=== PATIENT | male | born 1945 | race Caucasian/White ===

== ENCOUNTER 2017-03-23 13:44 | Inpatient (IN) | payer MEDICARE, OTHER ==
--- NOTE | 2017-03-23 15:25 | ED ---
Throat Pain/Nasal Congestion - HPI Summary HPI Summary: 72 y/o male with PMH of DM, a fib, elevated chol, HTN, CAD presents with herpes zoster ophthalmicus. patient began having symptoms Monday, was seen by PCP ronda ag 03/21, started on valcylovir 1 gram TID, patient noted eye droop and unable to open R eye, sent to Dr. Augustin- did eye examination, sent patient to ER for IV due to possible [employer]IE MAKER involvement and need to ID evaluation. Patient otherwise feeling well, no complaints. + watering of eye, ambulating well, rash with vesicles over right forehead, nose, denies other rash locations. - History of Current Complaint Chief Complaint: EDEyeProblem Time Seen by Provider: 03/23/17 15:09 Hx Obtained From: Patient, Family/Optical Instrument Inspector - Onset/Duration: Gradual Onset, Lasting Days - started monday Severity: Severe - Allergies/Home Medications Allergies/Adverse Reactions: Allergies Allergy/AdvReac Type Severity Reaction Status Date / Time No Known Allergies Allergy Verified 01/19/16 12:36 Home Medications: Home Medications Ascorbic Acid TAB* [Vitamin C TAB*] 500 mg PO DAILY 03/23/17 [History Confirmed 03/23/17] Digoxin TAB* [Lanoxin TAB*] 0.125 mg PO EVERY OTHER DAY 03/23/17 [History Confirmed 03/23/17] Gabapentin CAP(*) [Neurontin 300 CAP(*)] 300 mg PO TID 03/23/17 [History Confirmed 03/23/17] Levothyroxine TAB* [Synthroid TAB*] 112 mcg PO DAILY 03/23/17 [History Confirmed 03/23/17] Losartan TAB* [Cozaar TAB*] 100 mg PO DAILY 03/23/17 [History Confirmed 03/23/17 ] Metoprolol Tartrate TAB* [Lopressor TAB*] 100 mg PO BID 03/23/17 [History Confirmed 03/23/17] Multivitamins/Minerals TAB* [Thera M Plus TAB*] 1 tab PO DAILY 03/23/17 [ History Confirmed 03/23/17] Pravastatin (NF) [Pravachol (NF)] 40 mg PO BEDTIME 03/23/17 [History Confirmed 03/23/17] Tamsulosin CAP* [Flomax CAP*] 0.4 mg PO DAILY 03/23/17 [History Confirmed ] ValACYclovir (*) [Valtrex 1 GM(*)] 1 gm PO TID 03/23/17 [History Confirmed 03/23] Warfarin TAB(*) [Coumadin TAB(*)] 2.5 mg PO TH 03/23/17 [History Confirmed 03/23] amLODIPine TAB* [Norvasc 5 mg TAB*] 5 mg PO DAILY 03/23/17 [History Confirmed ] metFORMIN* [Glucophage 500 MG TAB *] 500 mg PO TID 03/23/17 [History Confirmed 03/23/17] PMH/Surg Hx/FS Hx/Imm Hx Previously Healthy: No - h/o hrt dx, cad, a fib, dm, htn, elev chol Endocrine/Hematology History: Reports: Hx Diabetes Denies: Hx Systemic Lupus Erythematosus Cardiovascular History: Reports: Hx Hypertension Denies: Hx Congestive Heart Failure History: Denies: Hx Dialysis, Hx Renal Disease Musculoskeletal History: Denies: Hx Rheumatoid Arthritis - Cancer History Hx Chemotherapy: No - Surgical History Surgery Procedure, Year, and Place: rachel LLE and fasciotomy, R wrist nerve and tendon repair, R inguinal hernia repair - Immunization History Immunizations Up to Date: Yes Infectious Disease History: No Infectious Disease History: Denies: Traveled Outside the [place] in Last 30 Days - Social History Alcohol Use: None Substance Use Type: Reports: None Smoking Status (MU): Never Smoked Tobacco Review of Systems Positive: Photophobia - eyes currently dilated due to recent eye examination , Blurred Vision, Diplopia, Drainage, Erythema ENT: Negative Cardiovascular: Negative Respiratory: Negative Gastrointestinal: Negative Genitourinary: Negative Musculoskeletal: Negative Positive: Rash Neurological: Negative Psychological: Normal All Other Systems Reviewed And Are Negative: Yes Physical Exam Triage Information Reviewed: Yes Vital Signs On Initial Exam: Initial Vitals Temp Pulse Resp BP Pulse Ox 96.6 F 100 20 110/74 95 03/23/17 13:53 03/23/17 13:53 03/23/17 13:53 03/23/17 13:53 03/23/17 13:53 Vital Signs Reviewed: Yes Appearance: Positive: Well-Appearing, No Pain Distress, Well-Nourished Skin: Positive: Warm, Skin Color Reflects Adequate Perfusion, Other - vesicluar rash over right forehead, over bridge of nose. R eye edematous, shut- patient unable to open indepenantly. + watery drainage noted. Eye examination deferred as spoke with Dr. Augustin who performed examination with results avaialble. pupils dilated b/l, + reactive to light. EMOI L eye. no slurred speech, mouth movements symmetrical. TM, ear canal clear cerumen noted. ENT: Positive: Hearing grossly normal, TMs normal Neck: Positive: Supple, Nontender, No Lymphadenopathy Respiratory/Lung Sounds: Positive: Clear to Auscultation, Breath Sounds Present Cardiovascular: Positive: Normal, RRR, Pulses are Symmetrical in both Upper and Lower Extremities, S1, S2. Negative: Bradycardia, IRR, Murmur, Rub, Tachycardia Abdomen Description: Positive: Nontender Neurological: Positive: Normal, Sensory/Motor Intact, Alert, Oriented to Person Place, Time. Negative: CN Intact II-III - CN 3 defect R side Psychiatric: Positive: Normal AVPU Assessment: Alert - [place] Coma Scale Coma Scale Total: 15 Diagnostics - Vital Signs Vital Signs Temp Pulse Resp BP Pulse Ox 03/23/17 13:53 96.6 F 100 20 110/74 95 - Laboratory Result Diagrams: 03/23/17 16:14 03/23/17 16:14 Lab Statement: Any lab studies that have been ordered have been reviewed, and results considered in the medical decision making process. EENT Course/Dx - Course Course Of Treatment: patient discussed wt DR. AUGUSTIN, DR. MARQUEZ, admit with IV antivirals, MRI brain. Patient in agreement. - Differential Diagnoses Differential Diagnoses: Allergic Rhinitis, Cellulitis, Coagulopathy, Contusion, Corneal Abrasion, Mastoiditis, Otitis Externa, Otitis Media, Trauma, Uveitis - Diagnoses Provider Diagnoses: Herpes zoster complicated Discharge - Discharge Plan Condition: Good Disposition: ADMITTED TO [facility]
[2017-03-23 16:30] LABS: Hematocrit 47 % (42-52); Hemoglobin 15.9 g/dl (14.0-18.0); Mean Corpuscular HGB Conc 34 g/dl (31-36); Mean Corpuscular Hemoglobin 30 pg (27-31); Mean Corpuscular Volume 89 fL (80-94); Mean Platelet Volume 9 um3 (7.4-10.4); Red Blood Count 5.32 10^6/ul (4.0-5.4); Red Cell Distribution Width 14 % (10.5-15); White Blood Count 9.5 10^3/ul (3.5-10.8)
[2017-03-23] MEDS ORDERED: Acyclovir IV(*) 800 MG in NS 0.9% 250 ML* 250 ML IVPB ONE (16:30)
[2017-03-23 16:43] LABS: ALT 19 U/L (7-52); Albumin 4.2 g/dL (3.2-5.2); Alkaline Phosphatase 63 U/L (34-104); BUN/Creatinine Ratio 18.9 (8-20); Blood Urea Nitrogen 24 mg/dL (6-24); CO2 Carbon Dioxide 30 mmol/L (22-32); Calcium 9.7 mg/dL (8.6-10.3); Chloride 99 mmol/L (101-111); EGFR African American 71.5 (>60); EGFR Non-African American 55.6 (>60); Globulin 2.7 g/dL (2-4); Glucose 115 mg/dL (70-100); Sodium 135 mmol/L (133-145); Total Protein 6.9 g/dL (6.4-8.9)
[2017-03-23] MEDS ORDERED: Dextrose 50% Syringe 50 ML* 25 GM/50 ML SYRINGE IV PUSH PRN (16:52)
[2017-03-23] MEDS ORDERED: metFORMIN* 500 MG TAB PO SCH (17:00)
[2017-03-23 17:19] LABS: Anion Gap 6 mmol/L (2-11)
[2017-03-23] MEDS ORDERED: Gadoteridol* (CONTRAST) 279.3 MG/ML 10 ML IV ONE (17:58)
--- NOTE | 2017-03-23 18:54 | RAD ---
INDICATION: Right eye ptosis, swelling and rash for head consistent with herpes zoster. COMPARISON: None TECHNIQUE: Sagittal T1, axial T1, T2, susceptibility, FLAIR and diffusion-weighted images were obtained. In addition, axial, sagittal and coronal T1-weighted images were obtained following intravenous injection of 2012 mL of ProHance contrast. FINDINGS: The ventricles, cisterns and sulci exhibit symmetrical involutional changes. Involving the right parietal lobe there is T2 bright focus involving the cortex. There is no enhancement at this site on the corresponding T1 and T1 postcontrast images. Examination of the oculomotor nerves do not show any abnormal T2-weighted signal or any abnormal foci of enhancement when comparing the T1-T1 post images. The optic nerves are normal in signal and do not exhibit enhancement. The globes exhibiting normal fluid signal. The retrobulbar fat is normal in signal. No areas of restricted diffusion are present. There is no evidence for infarct or hemorrhage. The visualized portion of the paranasal sinuses and mastoid air cells appear clear. IMPRESSION: 1. 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 2. Careful examination of the oculomotor nerves (CN3) does not reveal abnormal signal or enhancement.
[2017-03-23] MEDS ORDERED: Acetaminophen TAB* 325 MG PO PRN (19:36)
--- NOTE | 2017-03-23 19:49 | HP ---
CC: Dr. Eid * HISTORY AND PHYSICAL: DATE OF ADMISSION: 03/23/17 PRIMARY CARE PHYSICIAN: Dr. Eid. CHIEF COMPLAINT: Shingles and double vision. HISTORY OF PRESENT ILLNESS: Mr. Smith is a 72-year-old male with a past medical history of AFib, diabetes, hyperlipidemia, CAD, and hypertension, who presented to the hospital with worsening symptoms from zoster. As per the patient, his symptoms began 6 days ago where he developed rash on his forehead. This was on Monday. He called his PCP, Dr. Eid, who recommended he come in to see her the following week. Over the weekend, he developed headaches and the rash and he developed blisters along with the rash on his forehead. He also reports generalized chills and aches. He saw his PCP 2 days ago. He was diagnosed with shingles and was started on Valtrex and gabapentin. He began to have some ptosis 2 days ago. After beginning the gabapentin, the headache improved, but the rash seemed to stay the same. Yesterday, the patient noticed he began to have double vision. He spoke to his PCP today, who recommended he go see an special machine stitcher. Today, he went to Dr. Bourgeois and saw Dr. Velásquez. Dr. Velásquez dilated the patient's pupils and did an eye exam, did not notice anything concerning in the eye, but the patient did have ptosis and third nerve palsy and he recommended admission to the hospital for IV antivirals. The patient denies any fever, chest pain, shortness of breath, nausea, vomiting, abdominal pain, diarrhea, hematuria, dysuria, or blood in the stool. No history of shingles in the past. PAST MEDICAL HISTORY: Diabetes, AFib, hyperlipidemia, CAD, hypertension. PAST SURGICAL HISTORY: Right wrist surgery, inguinal hernia repair, left lower extremity rods, and fasciotomy for tib-fib fracture. HOME MEDICATIONS: 1. Multivitamin 1 tablet by mouth daily. 2. Flomax 0.4 mg by mouth daily. 3. Vitamin C 500 mg by mouth daily. 4. Gabapentin 300 mg by mouth 3 times daily. 5. Valtrex 1 g by mouth 3 times daily. 6. Losartan 100 mg by mouth daily. 7. Metformin 500 mg by mouth 3 times daily. 8. Amlodipine 5 mg by mouth daily. 9. Digoxin 0.125 mg by mouth every other day. 10. Synthroid 112 mcg by mouth daily. 11. Metoprolol 100 mg by mouth 3 times daily. 12. Pravastatin 40 mg by mouth at bedtime. 13. Warfarin 2.5 mg by mouth on , 5 mg every other day of the week. ALLERGIES: The patient reports no known drug allergies. FAMILY HISTORY: Significant for sister with schizophrenia, father with diabetes. SOCIAL HISTORY: The patient is a former smoker, smoked for about 30 years about a pack and a half per day. Denies any alcohol use currently. No illicit drug use. REVIEW OF SYSTEMS: A 12-point review of systems is negative except for those noted on the HPI. PHYSICAL EXAMINATION GENERAL: The patient is an elderly man, lying in bed, in no apparent distress. VITAL SIGNS: On admission, temperature 96.6, heart rate of 100, respiratory rate of 20, O2 saturation 95% on room air, blood pressure 110/74. HEENT: Head: Normocephalic, atraumatic. Eyes: Pupils are dilated bilaterally from recent eye exam. Anicteric sclerae. ENT: Moist mucous membranes. No cervical adenopathy. LUNGS: Clear to auscultation bilaterally. No wheezing, rales, or rhonchi. CARDIOVASCULAR: Regular rate and rhythm. S1 and S2 present. No murmurs, gallops, or rubs. ABDOMEN: Soft, nontender, nondistended. Bowel sounds positive. EXTREMITIES: No cyanosis, clubbing, or edema. NEURO: The patient is alert, oriented x3. The patient has third nerve palsy with right eye at adduction and right-sided ptosis. SKIN: The patient has crusted over vesicular lesions on his forehead and some involving the bridge of the nose on the right side, but did not crust across the middle of the forehead. Has very mild scalp involvement. DIAGNOSTIC STUDIES/LAB DATA: White blood cell count of 9.5, hematocrit of 47, platelets of 233. INR of 2.11. Sodium 135, potassium hemolyzed, chloride of 99 , carbon dioxide of 30, BUN of 24, creatinine of 1.27, glucose of 115, calcium 9.7. Total bilirubin of 1.3. AST hemolyzed, remainder of LFTs within normal limits. MRI is ordered and pending. ASSESSMENT AND PLAN: Herpes zoster ophthalmicus with third nerve palsy in a 72 - year-old man with past medical history of hypertension; hyperlipidemia; coronary artery disease; atrial fibrillation, on Coumadin; diabetes. 1. Herpes zoster ophthalmicus with cranial nerve involvement. Spoke to Dr. Velásquez as well as Dr. Thompson. Recommend IV acyclovir. We will need to keep a close eye on the patient's creatinine and adjust the dose as needed. MRI has been ordered to evaluate for any possible arterial involvement. The patient could have an associated arteritis. We will hold the patient's gabapentin for now in the setting of his elevated creatinine. 2. Atrial fibrillation. Continue metoprolol every other day, digoxin, and Coumadin. 3. Hypertension. Continue metoprolol and amlodipine. We will hold losartan for now with the patient's elevated creatinine. 4. Acute kidney infection versus chronic kidney disease. Seems like this creatinine may be the patient's baseline; however, with the acyclovir, I am hesitant to continue nephrotoxic medications without seeing if there is any effect on the kidney function tomorrow. 5. Diabetes. Hold metformin for now. Humalog insulin sliding scale. 6. DVT prophylaxis, Coumadin. 7. Code status. The patient is full code. TIME SPENT: Total time spent on this admission was 50 minutes, more than half the time spent [id number] with the patient in counseling and coordinating care. [id number]/[facility] #: [id number] ANDI
[2017-03-23] MEDS: Insulin LISPRO* 1 UNITS UNIT SUBCUT SCH (20:05)
[2017-03-23] MEDS: Atorvastatin* 10 MG TAB PO SCH (20:12)
[2017-03-23] MEDS: Metoprolol Tartrate TAB* 100 MG TAB PO SCH (20:12)
[2017-03-23] MEDS ORDERED: Gabapentin CAP(*) 300 MG PO SCH (21:00)
[2017-03-24] MEDS: Acyclovir IV(*) 800 MG in NS 0.9% 250 ML* 250 ML IVPB SCH ×3 (01:42→17:07)
[2017-03-24] MEDS: Levothyroxine TAB* 112 MCG TAB PO SCH (05:54)
[2017-03-24 06:00] LABS: Hematocrit 46 % (42-52); Hemoglobin 15.8 g/dl (14.0-18.0); Mean Corpuscular HGB Conc 34 g/dl (31-36); Mean Corpuscular Hemoglobin 31 pg (27-31); Mean Corpuscular Volume 89 fL (80-94); Mean Platelet Volume 9 um3 (7.4-10.4); Red Cell Distribution Width 14 % (10.5-15); White Blood Count 9.1 10^3/ul (3.5-10.8)
[2017-03-24 06:17] LABS: BUN/Creatinine Ratio 17.2 (8-20); Calcium 9.2 mg/dL (8.6-10.3); EGFR African American 79.4 (>60); EGFR Non-African American 61.7 (>60); Potassium 4.4 mmol/L (3.5-5.0)
[2017-03-24] MEDS: amLODIPine TAB* 5 MG PO SCH (08:54)
[2017-03-24] MEDS: Insulin LISPRO* 1 UNITS UNIT SUBCUT SCH ×3 (08:55→16:56)
[2017-03-24] MEDS: Tamsulosin CAP* 0.4 MG PO SCH (08:55)
[2017-03-24] MEDS: Ascorbic Acid TAB* 500 MG PO SCH (08:55)
[2017-03-24] MEDS: Metoprolol Tartrate TAB* 100 MG TAB PO SCH ×2 (08:56→17:07)
[2017-03-24] MEDS ORDERED: Losartan TAB* 25 MG PO SCH (09:00)
--- NOTE | 2017-03-24 13:28 | PN ---
Subjective Date of Service: 03/24/17 Interval History: Patient seen this morning. Symptoms largely unchanged, no worse. No CAMPBELL. Good PO intake. Family History: Unchanged from Admission Social History: Unchanged from Admission Past Medical History: Unchanged from Admission Objective Active Medications: Acetaminophen (Tylenol Tab*) 650 mg PO Q6H PRN Amlodipine Besylate (Norvasc Tab*) 5 mg PO DAILY [facility] Ascorbic Acid (Vitamin C Tab*) 500 mg PO DAILY [facility] Atorvastatin Calcium (Lipitor*) 10 mg PO BEDTIME [facility] Dextrose (D50w Syringe 50 Ml*) 12.5 gm IV PUSH .FOR FS < 60 - SS PRN Digoxin (Lanoxin Tab*) 0.125 mg PO EVERY OTHER DAY [facility] Acyclovir Sodium 800 mg/ (Sodium Chloride) 266 mls @ 266 mls/hr IVPB Q8H [facility] Insulin Human Lispro (Humalog*) 0 - 10 units SUBCUT AC [facility] Levothyroxine Sodium (Synthroid Tab*) 112 mcg PO DAILY@0600 [facility] Metoprolol Tartrate (Lopressor Tab*) 100 mg PO BID WITH MEALS [facility] Tamsulosin HCl (Flomax Cap*) 0.4 mg PO DAILY [facility] Warfarin Sodium (Coumadin Tab(*)) 2.5 mg PO Th@1700 [facility] Warfarin Sodium (Coumadin Tab(*)) 5 mg PO SuMoTuWeFrSa@1700 [facility] Vital Signs 03/23/17 03/23/17 03/23/17 16:22 17:14 19:00 Temperature 98.2 F 97.7 F 97.7 F Pulse Rate 98 92 97 Respiratory 17 17 18 Rate Blood Pressure 123/84 128/77 123/70 (mmHg) O2 Sat by Pulse 98 98 100 Oximetry 03/23/17 03/23/17 03/24/17 21:00 23:23 03:18 Temperature 97.9 F 98.4 F Pulse Rate 76 79 Respiratory 18 20 20 Rate Blood Pressure 137/74 139/89 (mmHg) O2 Sat by Pulse 98 98 Oximetry 03/24/17 03/24/17 03/24/17 07:50 08:00 11:15 Temperature 98.1 F 97.5 F Pulse Rate 86 72 Respiratory 18 18 18 Rate Blood Pressure 136/85 131/83 (mmHg) O2 Sat by Pulse 98 100 Oximetry Oxygen Devices in Use Now: None Appearance: Elderly, M, laying in bed in NAD Eyes: No Scleral Icterus Ears/Nose/Mouth/Throat: Mucous Membranes Moist Neck: NL Appearance and Movements; NL JVP Respiratory: Symmetrical Chest Expansion and Respiratory Effort, Clear to Auscultation Cardiovascular: - - IRIR Abdominal: NL Sounds; No Tenderness; No Distention Lymphatic: No Cervical Adenopathy Extremities: No Edema Skin: - - Crusted lesions over R forehead in V1 distribution Neurological: Alert and Oriented x 3, - - 3rd nerve palsy Result Diagrams: 03/24/17 05:07 03/24/17 05:07 Assess/Plan/Problems-Billing Assessment: Herpes zoster ophthalmicus with CN3 palsy in a 72 yo M with hx of HTN, HLD, CAD , AFib on coumadin and DM - Patient Problems (1) Herpes zoster ophthalmicus of right eye Current Visit: Yes Comment: MRI showed old CVA, no active issues involving CN3. Continue IV acyclovir. Dr. Thompson to evaluate and determine duration of IV therapy. (2) Atrial fibrillation Current Visit: Yes Comment: Continue metoprolol, coumadin and every other day digoxin (3) HTN (hypertension) Current Visit: Yes Comment: Continue Metoprolol and Amlodipine. Holding Losartan. (4) JASSI (acute kidney injury) Current Visit: Yes Comment: Resolved (5) Diabetes Current Visit: Yes Comment: HISS (6) DVT prophylaxis Current Visit: Yes Comment: Coumadin Status and Disposition: Inpatient for IV Acyclovir
[2017-03-24] MEDS ORDERED: Warfarin TAB(*) 5 MG PO SCH (17:00)
[2017-03-24] MEDS: Atorvastatin* 10 MG TAB PO SCH (21:37)
--- NOTE | 2017-03-24 22:14 | CONS ---
CONSULTATION REPORT: DATE OF CONSULT: 03/24/17 REQUESTING PHYSICIAN: Dr. Vargas. CONSULTING SERVICE: Infectious Disease. REASON FOR CONSULTATION: Herpes zoster ophthalmicus, right third cranial nerve palsy. IMPRESSION: 1. Herpes zoster ophthalmicus, vision seems to be intact. He has also a right third cranial nerve palsy, which is associated with this infection by case report. I think it is less likely related to direct infectious complication as opposed to inflammatory response complication. 2. Diabetes. RECOMMENDATIONS: 1. Continue acyclovir 10 mg/kg IV every 8 hours while he is here and then as long as he continues t o improve by tomorrow, we could change him to Valtrex 1 g twice a day for 7 more days. At this poin t, the lesions are crusted and appear to be nearly resolved. 2. Although, there is no data for prednisone 40 mg a day x2 days and then 20 mg for 2 days and 10 m g for 2 days in the hopes that it might speed resolution of his cranial neuropathy. HISTORY OF PRESENT ILLNESS: A 72-year-old male with diabetes and atrial fibrillation, admitted with right forehead rash and vision change. Last week he developed rash on his right forehead, a little bit of tingling, then some blisters, some aches and chills. He saw his primary, Jaye Mckenzie NP, was prescribed gabapentin and Valtrex, which he started, then he noticed on Monday it was difficul t to open his right eye and he could not open the eye and eventually was referred to ava Holbrook recommended admission. The patient notes double vision. No blurred vision. He cannot open righ t eyelid, but when it is kept open, he has not noticed blurring or change in acuity. He is not havi ng fevers or chills. He has been on acyclovir overnight, tolerating it well. He had an MRI of the brain with and without contrast did not show anything other than an old infarct in the cortex of rig ht posterior parietal lobe. PAST MEDICAL HISTORY: 1. Type 2 diabetes. 2. Atrial fibrillation, on Coumadin. 3. Hyperlipidemia. 4. Coronary artery disease. 5. Hypertension. 6. Status post right wrist surgery. 7. Status post inguinal hernia repair. 8. Status post left lower extremity fixation and fasciotomy for a previous tibia and fibula fractur e. 9. Benign prostatic hypertrophy. 10. Hypothyroidism. MEDICATIONS: 1. Tylenol. 2. Lipitor. 3. Digoxin. 4. Levothyroxine. 5. Metoprolol. 6. Tamsulosin. 7. Warfarin. 8. Acyclovir 800 mg every 8 hours. 9. Amlodipine. ALLERGIES: No known drug allergies. FAMILY HISTORY: Sister had schizophrenia. Father had diabetes. SOCIAL HISTORY: Past smoker. He is retired. He spends the winter in [place]. REVIEW OF SYSTEMS: A 14-point review of systems is negative except as noted above. PHYSICAL EXAM: Vital Signs: Temperature 36.7, heart rate 65, respiratory rate 18, blood pressure 1 30/70, O2 sat 97% on room air. In general, he is awake, not in distress. Neurologic: Oriented x3. Follows all commands. Neurologic: There is a right eyelid ptosis. The right eye is abducted, do es not adduct or elevate. Other cranial nerves otherwise intact. His right eye vision is grossly in tact. HEENT: There is mild bilateral conjunctival injection. Neck: Supple. Lymph Nodes: There i s no cervical, supraclavicular, inguinal, axillary, or epitrochlear lymphadenopathy. Heart: Regula r rate and rhythm without murmurs, rubs, or gallops. Lungs are clear to auscultation bilaterally. Abdomen: Soft, nontender, nondistended. There are bowel sounds present. Skin: There is no splint er hemorrhage. Over his right forehead, there are scattered mild erythematous patches with 2 to 3 m m multiple eschar, no vesicles. LABORATORY DATA: White blood cell count 9, hemoglobin 15, platelets 214. Creatinine is 1.1. Please see impressions and recommendation as outlined above, which I have discussed with Dr. Vargas . Thank you for asking me to see Mr. Smith in consultation. [id number]/[facility] #: [id number]
[2017-03-25] MEDS: Acyclovir IV(*) 800 MG in NS 0.9% 250 ML* 250 ML IVPB SCH ×2 (01:05→07:56)
[2017-03-25] MEDS: Levothyroxine TAB* 112 MCG TAB PO SCH (06:21)
[2017-03-25] MEDS ORDERED: NS 0.9% 250 ML* 250 ML ONE (07:52)
[2017-03-25] MEDS: Ascorbic Acid TAB* 500 MG PO SCH (07:57)
[2017-03-25] MEDS: Metoprolol Tartrate TAB* 100 MG TAB PO SCH (07:57)
[2017-03-25] MEDS: amLODIPine TAB* 5 MG PO SCH (07:57)
[2017-03-25] MEDS: Tamsulosin CAP* 0.4 MG PO SCH (07:57)
[2017-03-25] MEDS: Insulin LISPRO* 1 UNITS UNIT SUBCUT SCH (08:05)
[2017-03-25] MEDS ORDERED: predniSONE TAB* 20 MG PO SCH (08:30)
[2017-03-25] MEDS ORDERED: Digoxin TAB* 0.125 MG PO SCH (09:00)
[2017-03-25 09:31] VITALS: BP 145/95
--- NOTE | 2017-03-26 14:59 | DS ---
CC: Dr. Eid; Dr. Bourgeois; Dr. Thompson * DISCHARGE SUMMARY: DATE OF ADMISSION: 03/23/17 DATE OF DISCHARGE: 03/25/17 PRIMARY CARE PROVIDER: Dr. Domenica Eid. PRIMARY DIAGNOSIS: Herpes ophthalmicus. SECONDARY DIAGNOSES: Include: 1. Diabetes. 2. Atrial fibrillation. 3. Hyperlipidemia. 4. Coronary artery disease. 5. Hypertension. MEDICATIONS ON DISCHARGE: Include: 1. Acyclovir 800 mg 5 times a day for 10 days. 2. Prednisone taper 40 mg for 2 days, then 20 mg for 2 days, and 10 mg for 2 days. 3. Multivitamin 1 tab daily. 4. Flomax 0.4 mg daily. 5. Ascorbic acid 500 mg daily. 6. Gabapentin 300 mg 3 times daily. 7. Losartan 100 mg daily. 8. Metformin 500 mg 3 times daily. 9. Amlodipine 5 mg daily. 10. Digoxin 0.125 mg daily. 11. Levothyroxine 112 mcg daily. 12. Metoprolol tartrate 100 mg twice daily. 13. Pravastatin 40 mg at bedtime. 14. Coumadin 2.5 mg on and 5 mg every other day. 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 Careful examination of ocular motor nerve CN III does not reveal abnormal signal or enhancement. HISTORY OF PRESENT ILLNESS AND HOSPITAL COURSE: This is a 72-year-old man, past medical history as outlined in history of present illness on the day of admission, who developed facial rash on the right side of his face, consistent with herpes zoster. He was seen at Dr. Bourgeois's office as well as Dr. Eid's office prior to presenting to the hospital. However, after developing ptosis, he presented to the hospital as physician's recommendation. He was diagnosed with herpes ophthalmicus and started on IV acyclovir. He was seen in consultation with Dr. Thompson. He was started on steroids prior to discharge, will be continued in hopes that he will recover function of his right eye sooner. He will follow up with Dr. Bourgeois next week and has a followup with Dr. Eid already scheduled on Monday. It should be noted while I attempted to prescribe Valtrex to the patient, the insurance apparently does not cover it. Recommended alternative with acyclovir, which is the reason he was prescribed such a heavy burden of the medication to be taken 5 times a day. This was explained to the patient in detail. He was in agreement with the plan. FOLLOWUP INSTRUCTIONS: At followup, please: 1. Follow for improvement of his right eye. 2. No other specific labs or vitals that need followup. Reasons to return to the hospital including but not limited to recurrent or worsening symptoms, changes in his vision, headache, fever, chills, night sweats , changes in level of consciousness or confusion, nausea, vomiting, loss of consciousness, inability to obtain or tolerate medications discussed with the patient, he acknowledged understanding. TIME SPENT: Greater than 60 minutes was spent on discharge of the patient, greater than half was spent [id number] with the patient. [id number]/[facility] #: [id number] ANDI
[2017-03-30] MEDS ORDERED: Warfarin TAB(*) 2.5 MG PO SCH (17:00)
== END 2017-03-25 10:00 | disposition home or self-care (01) | DRG 125 ==
LOC: ED 13:44 → MEDTELE 15:40
PROVIDERS: ADMIT Internal Medicine; ATTEND Internal Medicine
DX: B02.30 Zoster ocular disease, unspecified (principal); N17.9 Acute kidney failure, unspecified; H49.01 Third [oculomotor] nerve palsy, right eye; I48.91 Unspecified atrial fibrillation; E11.9 Type 2 diabetes mellitus without complications; I10 Essential (primary) hypertension; E78.5 Hyperlipidemia, unspecified; E03.9 Hypothyroidism, unspecified; I25.10 Atherosclerotic heart disease of native coronary artery without angina pectoris; R40.2412 Glasgow coma scale score 13-15, at arrival to emergency department; Z79.01 Long term (current) use of anticoagulants; Z83.3 Family history of diabetes mellitus; Z81.8 Family history of other mental and behavioral disorders; Z87.891 Personal history of nicotine dependence; N40.0 Benign prostatic hyperplasia without lower urinary tract symptoms; Z79.84 Long term (current) use of oral hypoglycemic drugs
CPT/HCPCS: 36415; 70553; 80048; 80053; 80061; 82043; 82570; 83036; 84443; 85025; 85610; A9270-GY; A9579; J0133; J7512

== ENCOUNTER → 2019-01-14 08:25 | Day surgery (SDC) | payer MEDICARE, OTHER ==
[~2019-01-14 08:25] MED LIST: Acetaminophen TAB* 325 MG ONE; Acetaminophen TAB* 325 MG PO PRN; Buffered Lidocaine 1% SYRIN* 1 ML/SYRINGE INTRADERM ONE; Bupivacaine 0.25% SDV PF* 10 ML VIAL INJ ONE; Dexamethasone TAB* 4 MG ONE; Dexamethasone TAB* 4 MG PO ONE; Famotidine IV* 10 MG/ML 2 ML (20 mg) IV ONE; Famotidine IV* 10 MG/ML 2 ML (20 mg) ONE; Lactated Ringers 1000 ML Bag* 1,000 ML IV SCH; Lidocaine 2% PF * 5 ML VIAL ONE; Midazolam* 1 MG/ML 5 ML VIAL (5 MG) ONE; Naloxone* 0.4 MG/ML 1 ML VIAL IV PRN; Ondansetron INJ* 2 MG/ML VIAL IV PRN; Ondansetron ODT TAB* 4 MG ONE; Ondansetron ODT TAB* 4 MG PO ONE; Propofol* 10 MG/ML 20 ML BTL ONE; ceFAZolin 2 GM in NS PREMIX(*) 2 GM/100 ML BAG IVPB ONE; fentaNYL* 50 MCG/ML 2 ML VIAL (100 MCG VIAL) IV PRN; fentaNYL* 50 MCG/ML 2 ML VIAL (100 MCG VIAL) ONE; oxyCODONE/Acetamin 5/325 MG* TAB PO PRN
[2019-01-14 13:33] VITALS: BP 135/79
--- NOTE | 2019-01-14 14:11 | OP ---
OPERATIVE REPORT: DATE OF OPERATION: 01/14/19 DATE OF : 43 ATTENDING SURGEON: Trenton Gorman MD STEWARDING SUPERVISOR: None. ANESTHESIA: MAC sedation. PRE-OP DIAGNOSIS: Requiring dual-lumen port for treatment. POST-OP DIAGNOSIS: Requiring dual-lumen port for treatment. OPERATIVE PROCEDURE: Placement of left subclavian approach dual-lumen catheter/PowerPort. INDICATION FOR PROCEDURE: Requiring PowerPort for chemotherapy and blood draws for treatment at [facility] . Risks of dual-lumen placement including, but not limited to, bleeding, infection, and pneumothorax were explained to the patient, who seemed to understand and agreed to the procedure. All questions were answered. IMPLANTS: Dual-lumen PowerPort placed. DESCRIPTION OF PROCEDURE: The patient was taken to the operating and placed in the supine position. Preoperative antibiotics were given. Left chest was prepped and draped in a sterile fashion. Time- out was performed indicating correct patient, correct procedure. The patient was placed in a [place] position. A wire was passed through a needle, which was placed in the left subclavian vein an d advanced toward the superior vena cava and identified on fluoroscopy. The needle was removed. The tract was dilated. A split sheath was placed over the wire. The wire was removed. The dual-lumen catheter was then placed through the split sheath and the split sheath was removed. The catheter was tunneled under the skin and connected to the port, which was placed in a subcutaneous pocket made ju st below the initial site of access. This was aspirated of any air, easily aspirated blood, and was flushed with heparinized saline in both ports. The incision was closed in layers using 3-0 Monocryl. Glue was applied to the skin. EBL was minimal. [id number]/[facility] #: [id number]
== END | disposition home or self-care (01) ==
LOC: OR 08:25
PROVIDERS: ATTEND Surgery
DX: D46.9 Myelodysplastic syndrome, unspecified (principal); Z87.891 Personal history of nicotine dependence; I10 Essential (primary) hypertension; I48.2 Chronic atrial fibrillation; E11.9 Type 2 diabetes mellitus without complications; Z79.84 Long term (current) use of oral hypoglycemic drugs; E03.9 Hypothyroidism, unspecified; E78.5 Hyperlipidemia, unspecified; R97.20 Elevated prostate specific antigen [PSA]; D46.21 Refractory anemia with excess of blasts 1
CPT/HCPCS: 71045; 76000; A9270-GY; C1788; J0690; J1642; J2250; J2704; J3010; J3490; J8540

== ENCOUNTER 2019-07-16 15:22 | Inpatient (IN) | payer MEDICARE, OTHER ==
--- OUTSIDE RECORDS SUMMARY | 2019-07-16 16:22 | XMS REPORT | Continuity of Care Document ---
:1945 External Reference #:[id number] Author Name Jeovany Quinones DO FACC (transmitted by agent of provider Namita Alcantar) Address [address] [place] [id number] Care Team Providers Name Role Phone Drea Barros MD - Cardiovascular Care Team Information [employer] [phone] Disease Jeovany Quinones DO, FACC - Care Team Information [employer] [phone] Cardiovascular Disease Problems Active Problems Provider Date Type 2 diabetes mellitus Domenica Eid M.D. Onset: 07/17/2011 Chronic atrial fibrillation Domenica Eid M.D. Onset: 04/10/2015 Essential hypertension Jeovany Quinones DO FAC Onset: 04/23/2015 Myelodysplastic syndrome (clinical) Domenica Eid M.D. Onset: 09/11/2018 Social History Type Date Description Comments Sex Unknown Tobacco Use Start: Unknown End: Former Cigarette Smoker started at age 17, Unknown 2PPD, quit 55 ETOH Use Denies alcohol use Used to drink heavily, quit in 1992 Tobacco Use Start: Unknown End: Patient is a former Unknown smoker Recreational Drug Use Denies Drug Use Tobacco Use Start: Unknown Started at 16, quit at 55. Smoked 2 pk per day Smoking Status Reviewed: 05/22/19 Started at 16, quit at 55. Smoked 2 pk per day Exercise Type/Frequency Does not exercise due to left leg Allergies, Adverse Reactions, Alerts Description No Known Drug Allergies Medications Active Medications SIG Qnty Indications Ordering Provider Date Gabapentin 1 by mouth 270caps Domenica Eid, 10/19/2018 300mg three times a M.D. Capsules day Onetouch Ultra Blue test daily or 75units Domenica Marietta, 01/29/2018 as needed M.D. Strips e11.9 - Patient last seeen on 01/12/18 Onetouch Delica use for testing 100units Domenica Marietta, 01/26/2018 Lancets Fine 30G blood sugar M.D. 30G [facility] daily [facility] Glucocom Blood for testing 1units Domenica Eid, 12/16/2016 Glucose Monitoring once daily M.D. System Value Kit (monitor per plan) dx e11.65 W/Device Kit Lancets for blood sugar 50units Domenica Marietta, 12/16/2016 Misc testing once M.D. daily Levothyroxine Sodium Take One By 90tabs Domenica Eid, 11/19/2009 Mouth Daily M.D. 112mcg Tablets Protonix 1 by mouth Unknown 40mg Tablets every day DR Tacrolimus take one Unknown 1mg Capsules capsule by mouth 2 times daily Tacrolimus take 1 capsule Unknown 0.5mg 2 times daily Capsules Sulfamethoxazole/Trim 1 by mouth Unknown ethoprim DS twice a day 800-160mg Tablets Magnesium Plus Take 2 (133 mg) Unknown Protein tablets by mouth 3 times daily Fluconazole 1 by mouth Unknown 200mg every day Tablets Diltiazem HCL ER 1 by mouth Unknown 240mg every day Caps ER 24HR Ascorbic Acid daily Unknown 500mg Tablets Acyclovir one capsule 3 Unknown 200mg times a day as Capsules needed Metoprolol Succinate 1 by mouth Unknown ER twice daily 25mg Tablets ER 24HR Furosemide one daily 90tabs Domenica Marietta, 40mg Tablets M.D. Tamsulosin HCL [facility] Capsules Multi For Him 50+ 1 po qd Unknown Tablets History Medications Metoprolol Succinate 1 and 1/2 tabs 135tabs Domenica Eid, 12/12/2018 - Unknown ER po qd M.D. 100mg Tablets ER 24HR Medications Administered in Office Medication SIG Qnty Indications Ordering Provider Date Inj, Regadenoson, 0.1 MG Jeovany Quinones, DO [facility] 01/11/2017 Injection Technetium TC 99M Jeovany Quinonse, DO [facility] 01/11/2017 Tetrofosmin, Per Unit Dose Up To 40 Millicuries Injection Immunizations CPT Code Status Date Vaccine Lot # [id number] Given 02/26/2018 Zoster (Shingles) Vaccine (HZV), Recombinant, Subunit, Adjuvanted 59280 Given 12/26/2017 Zoster (Shingles) Vaccine (HZV), Recombinant, Subunit, Adjuvanted Q2039 Given 03/29/2016 Flu Vaccine NOS 47616 Given 04/10/2015 Influenza Virus Vaccine, Quadrivalent, Split, [id number] Preservative Free 90577 Given 04/10/2015 Pneumococcal Conjugate Vaccine 13 Valent For [id number] Intramuscular Use 47526 Given 04/04/2013 Flu Vaccine Split Virus Preservative Free For [id number] Indiv 3Yr Older Q2038 Given 04/02/2012 Fluzone Vaccine [id number] 55482 Given 04/02/2012 Pneumonia Vaccine [id number] Q2035 Given 03/28/2011 Afluria Vaccine [id number] 20094 Given 03/31/2008 Influenza Virus 3Yrs & Over 44483 Given 03/31/2008 Influenza Virus 3Yrs & Over 31033 Given 07/09/2007 Zoster (Zostavax) 13971 Given 07/09/2007 Zoster (Zostavax) 55443 Given 04/10/2007 Influenza Virus 3Yrs & Over 53111 Given 07/04/2006 Pneumonia Vaccine 14545 Given 03/27/2006 Influenza Virus 3Yrs & Over 65612 Given 03/27/2006 Influenza Virus 3Yrs & Over Vital Signs Date Vital Result Comment 05/22/2019 1:12pm Weight 225.00 lb with shoes BP Systolic Sitting 119 mmHg LA BP Diastolic Sitting 80 mmHg LA BP Systolic Standing 120 mmHg LA BP Diastolic Standing 82 mmHg LA Ejection Fraction 50-55% Echo 12/18/18 05/01/2019 10:32am Heart Rate 76 /min Respiratory Rate 18 /min Body Temperature 97.8 F Results Test Acquired Date Facility Test Result H/L Range Note Laboratory test 05/21/2019 [facility] Phosphorus 3.5 mg/dL Normal 2.5-5.[address] [place] [address] [phone] Magnesium 1.5 mg/dL Low 1.9-2.7 LDH 150 U/L Normal 140-271 CBC Auto 05/21/2019 [facility] White Blood 3.6 10^3/uL Normal 3.5-10.[address] [place] [address] [phone] Red Blood Count 3.81 10^6/uL Low 4.18-5.48 Hemoglobin 12.8 g/dL Low 14.0-18.0 Hematocrit 36 % Low 42-52 Mean Corpuscular Volume 95 fL High 80-94 Mean Corpuscular Hemoglobin 34 pg High 27-31 Mean Corpuscular HGB Conc 35 g/dL Normal 31-36 Platelet Count 183 10^3/uL Normal 150-450 Mean Platelet Volume 6.6 fL Low 7.4-10.4 Abs Neutrophils 2.6 10^3/uL Normal 1.5-7.7 Abs Lymphocytes 0.5 10^3/uL Low 1.0-4.8 Abs Monocytes 0.5 10^3/uL Normal 0-0.8 Abs Eosinophils 0.1 10^3/uL Normal 0-0.6 Abs Basophils 0.0 10^3/uL Normal 0-0.2 Abs Nucleated RBC 0.0 10^3/uL Granulocyte % 71.5 % Lymphocyte % 13.4 % Monocyte % 12.8 % Eosinophil % 1.8 % Basophil % 0.5 % Nucleated Red Blood Cells % 0.1 Comp Metabolic 05/21/2019 [facility] Sodium 139 mmol/L Normal 135-[address] [place] [address] [phone] Potassium 4.4 mmol/L Normal 3.5-5.0 Chloride 103 mmol/L Normal 101-111 Co2 Carbon Dioxide 28 mmol/L Normal 22-32 Anion Gap 8 mmol/L Normal 2-11 Glucose 174 mg/dL High 70-100 Blood Urea Nitrogen 27 mg/dL High 6-24 Creatinine 1.35 mg/dL High 0.67-1.17 BUN/Creatinine Ratio 20.0 Normal 8-20 Calcium 9.7 mg/dL Normal 8.6-10.3 Total Protein 6.5 g/dL Normal 6.4-8.9 Albumin 4.2 g/dL Normal 3.2-5.2 Globulin 2.3 g/dL Normal 2-4 Albumin/Globulin Ratio 1.8 Normal 1-3 Total Bilirubin 0.50 mg/dL Normal 0.2-1.0 Alkaline Phosphatase 75 U/L Normal 34-104 Alt 40 U/L Normal 7-52 Ast 24 U/L Normal 13-39 Egfr Non- 51.5 >60 Egfr 62.3 >60 1 Laboratory test 05/21/2019 [facility] Red Cell 18 % High 10- [address] [place] [address] Width [phone] Laboratory test 05/09/2019 [facility] Phosphorus 3.2 Normal 2.5-5.[address] mg/dL [place], [place] [id number] [phone] Magnesium 1.5 mg/dL Low 1.9-2.7 LDH 141 U/L Normal 140-271 Tacrolimus To Other Lab 8.7 ng/mL 2 CBC Auto 05/09/2019 [facility] White Blood 4.5 10^3/uL Normal 3.5-10.[address] [place] [address] [phone] Red Blood Count 3.99 10^6/uL Low 4.18-5.48 Hemoglobin 13.3 g/dL Low 14.0-18.0 Hematocrit 38 % Low 42-52 Mean Corpuscular Volume 94 fL Normal 80-94 Mean Corpuscular Hemoglobin 33 pg High 27-31 Mean Corpuscular HGB Conc 35 g/dL Normal 31-36 Red Cell Distribution Width 18 % High 10-15 Platelet Count 176 10^3/uL Normal 150-450 Mean Platelet Volume 6.8 fL Low 7.4-10.4 Abs Neutrophils 3.2 10^3/uL Normal 1.5-7.7 Abs Lymphocytes 0.7 10^3/uL Low 1.0-4.8 Abs Monocytes 0.5 10^3/uL Normal 0-0.8 Abs Eosinophils 0.1 10^3/uL Normal 0-0.6 Abs Basophils 0.0 10^3/uL Normal 0-0.2 Abs Nucleated RBC 0.0 10^3/uL Granulocyte % 70.6 % Lymphocyte % 15.2 % Monocyte % 11.7 % Eosinophil % 1.8 % Basophil % 0.7 % Nucleated Red Blood Cells % 0.1 Comp Metabolic 05/09/2019 [facility] Sodium 136 mmol/L Normal 135-[address] [place] [address] [phone] Potassium 4.6 mmol/L Normal 3.5-5.0 Chloride 101 mmol/L Normal 101-111 Co2 Carbon Dioxide 26 mmol/L Normal 22-32 Anion Gap 9 mmol/L Normal 2-11 Glucose 160 mg/dL High 70-100 Blood Urea Nitrogen 22 mg/dL Normal 6-24 Creatinine 1.40 mg/dL High 0.67-1.17 BUN/Creatinine Ratio 15.7 Normal 8-20 Calcium 9.6 mg/dL Normal 8.6-10.3 Total Protein 6.8 g/dL Normal 6.4-8.9 Albumin 4.1 g/dL Normal 3.2-5.2 Globulin 2.7 g/dL Normal 2-4 Albumin/Globulin Ratio 1.5 Normal 1-3 Total Bilirubin 0.50 mg/dL Normal 0.2-1.0 Alkaline Phosphatase 71 U/L Normal 34-104 Alt 33 U/L Normal 7-52 Ast 21 U/L Normal 13-39 Egfr Non- 49.4 >60 Egfr 59.8 >60 3 Laboratory test 05/02/2019 [facility] Phosphorus 3.6 mg/dL Normal 2.5-5.[address] [place] [address] [phone] Magnesium 1.6 mg/dL Low 1.9-2.7 LDH 128 U/L Low 140-271 Tacrolimus To Other Lab 8.5 ng/mL 4 CBC Auto 05/02/2019 [facility] White Blood 5.0 10^3/uL Normal 3.5-10.[address] [place] [address] [phone] Red Blood Count 4.14 10^6/uL Low 4.18-5.48 Hemoglobin 13.4 g/dL Low 14.0-18.0 Hematocrit 39 % Low 42-52 Mean Corpuscular Volume 94 fL Normal 80-94 Mean Corpuscular Hemoglobin 32 pg High 27-31 Mean Corpuscular HGB Conc 35 g/dL Normal 31-36 Red Cell Distribution Width 17 % High 10-15 Platelet Count 191 10^3/uL Normal 150-450 Mean Platelet Volume 6.9 fL Low 7.4-10.4 Abs Neutrophils 3.5 10^3/uL Normal 1.5-7.7 Abs Lymphocytes 0.8 10^3/uL Low 1.0-4.8 Abs Monocytes 0.6 10^3/uL Normal 0-0.8 Abs Eosinophils 0.1 10^3/uL Normal 0-0.6 Abs Basophils 0.0 10^3/uL Normal 0-0.2 Abs Nucleated RBC 0.0 10^3/uL Granulocyte % 70.1 % Lymphocyte % 15.8 % Monocyte % 11.4 % Eosinophil % 1.8 % Basophil % 0.9 % Nucleated Red Blood Cells % 0.1 Comp Metabolic 05/02/2019 [facility] Sodium 137 mmol/L Normal 135-145 Panel [address] [place] [address] [phone] Potassium 4.7 mmol/L Normal 3.5-5.0 Chloride 102 mmol/L Normal 101-111 Co2 Carbon Dioxide 29 mmol/L Normal 22-32 Anion Gap 6 mmol/L Normal 2-11 Glucose 151 mg/dL High 70-100 Blood Urea Nitrogen 24 mg/dL Normal 6-24 Creatinine 1.36 mg/dL High 0.67-1.17 BUN/Creatinine Ratio 17.6 Normal 8-20 Calcium 9.8 mg/dL Normal 8.6-10.3 Total Protein 6.9 g/dL Normal 6.4-8.9 Albumin 4.3 g/dL Normal 3.2-5.2 Globulin 2.6 g/dL Normal 2-4 Albumin/Globulin Ratio 1.7 Normal 1-3 Total Bilirubin 0.40 mg/dL Normal 0.2-1.0 Alkaline Phosphatase 78 U/L Normal 34-104 Alt 33 U/L Normal 7-52 Ast 22 U/L Normal 13-39 Egfr Non- 51.1 >60 Egfr 61.8 >60 5 Laboratory test 04/25/2019 [facility] Phosphorus 3.2 mg/dL Normal 2.5-5.0 finding [address] [place] [address] [phone] Magnesium 1.4 mg/dL Low 1.9-2.7 LDH 132 U/L Low 140-271 Tacrolimus To Other Lab 9.5 ng/mL 6 CBC Auto 04/25/2019 [facility] White Blood 4.9 10^3/uL Normal 3.5-10.[address] [place] [address] [phone] Red Blood Count 4.05 10^6/uL Low 4.18-5.48 Hemoglobin 13.2 g/dL Low 14.0-18.0 Hematocrit 38 % Low 42-52 Mean Corpuscular Volume 93 fL Normal 80-94 Mean Corpuscular Hemoglobin 33 pg High 27-31 Mean Corpuscular HGB Conc 35 g/dL Normal 31-36 Red Cell Distribution Width 18 % High 10-15 Platelet Count 188 10^3/uL Normal 150-450 Mean Platelet Volume 6.9 fL Low 7.4-10.4 Abs Neutrophils 3.6 10^3/uL Normal 1.5-7.7 Abs Lymphocytes 0.6 10^3/uL Low 1.0-4.8 Abs Monocytes 0.5 10^3/uL Normal 0-0.8 Abs Eosinophils 0.1 10^3/uL Normal 0-0.6 Abs Basophils 0.0 10^3/uL Normal 0-0.2 Abs Nucleated RBC 0.0 10^3/uL Granulocyte % 74.2 % Lymphocyte % 12.7 % Monocyte % 9.9 % Eosinophil % 2.4 % Basophil % 0.8 % Nucleated Red Blood Cells % 0.0 Comp Metabolic 04/25/2019 [facility] Sodium 138 mmol/L Normal 135-[address] [place] [address] [phone] Potassium 4.7 mmol/L Normal 3.5-5.0 Chloride 103 mmol/L Normal 101-111 Co2 Carbon Dioxide 30 mmol/L Normal 22-32 Anion Gap 5 mmol/L Normal 2-11 Glucose 157 mg/dL High 70-100 Blood Urea Nitrogen 20 mg/dL Normal 6-24 Creatinine 1.29 mg/dL High 0.67-1.17 BUN/Creatinine Ratio 15.5 Normal 8-20 Calcium 9.5 mg/dL Normal 8.6-10.3 Total Protein 6.3 g/dL Low 6.4-8.9 Albumin 4.2 g/dL Normal 3.2-5.2 Globulin 2.1 g/dL Normal 2-4 Albumin/Globulin Ratio 2.0 Normal 1-3 Total Bilirubin 0.40 mg/dL Normal 0.2-1.0 Alkaline Phosphatase 75 U/L Normal 34-104 Alt 35 U/L Normal 7-52 Ast 21 U/L Normal 13-39 Egfr Non- 54.3 >60 Egfr 65.7 >60 7 Laboratory test 04/18/2019 [facility] Tacrolimus To 10.1 ng/mL [address] [place] [address] [phone] Comp Metabolic 04/18/2019 [facility] Sodium 138 mmol/L Normal 135-[address] [place] [address] [phone] Potassium 5.0 mmol/L Normal 3.5-5.0 Chloride 103 mmol/L Normal 101-111 Co2 Carbon Dioxide 29 mmol/L Normal 22-32 Anion Gap 6 mmol/L Normal 2-11 Glucose 176 mg/dL High 70-100 Blood Urea Nitrogen 23 mg/dL Normal 6-24 Creatinine 1.31 mg/dL High 0.67-1.17 BUN/Creatinine Ratio 17.6 Normal 8-20 Calcium 9.9 mg/dL Normal 8.6-10.3 Total Protein 6.6 g/dL Normal 6.4-8.9 Albumin 4.2 g/dL Normal 3.2-5.2 Globulin 2.4 g/dL Normal 2-4 Albumin/Globulin Ratio 1.8 Normal 1-3 Total Bilirubin 0.40 mg/dL Normal 0.2-1.0 Alkaline Phosphatase 79 U/L Normal 34-104 Alt 34 U/L Normal 7-52 Ast 23 U/L Normal 13-39 Egfr Non- 53.3 >60 Egfr 64.5 >60 9 CBC Auto 04/18/2019 [facility] White Blood 5.2 10^3/uL Normal 3.5-10.[address] [place] [address] [phone] Red Blood Count 4.09 10^6/uL Low 4.18-5.48 Hemoglobin 13.1 g/dL Low 14.0-18.0 Hematocrit 38 % Low 42-52 Mean Corpuscular Volume 94 fL Normal 80-94 Mean Corpuscular Hemoglobin 32 pg High 27-31 Mean Corpuscular HGB Conc 34 g/dL Normal 31-36 Red Cell Distribution Width 18 % High 10-15 Platelet Count 190 10^3/uL Normal 150-450 Mean Platelet Volume 6.8 fL Low 7.4-10.4 Abs Neutrophils 3.8 10^3/uL Normal 1.5-7.7 Abs Lymphocytes 0.6 10^3/uL Low 1.0-4.8 Abs Monocytes 0.6 10^3/uL Normal 0-0.8 Abs Eosinophils 0.1 10^3/uL Normal 0-0.6 Abs Basophils 0.1 10^3/uL Normal 0-0.2 Abs Nucleated RBC 0.0 10^3/uL Granulocyte % 72.6 % Lymphocyte % 12.4 % Monocyte % 10.8 % Eosinophil % 2.5 % Basophil % 1.7 % Nucleated Red Blood Cells % 0.0 Laboratory test 04/18/2019 [facility] Phosphorus 3.9 mg/dL Normal 2.5-5.[address] [place] [address] [phone] Magnesium 1.6 mg/dL Low 1.9-2.7 LDH 152 U/L Normal 140-271 CBC Auto 04/11/2019 [facility] White Blood 6.1 10^3/uL Normal 3.5-10.[address] [place] [address] [phone] Red Blood Count 4.14 10^6/uL Low 4.18-5.48 Hemoglobin 13.3 g/dL Low 14.0-18.0 Hematocrit 39 % Low 42-52 Mean Corpuscular Volume 93 fL Normal 80-94 Mean Corpuscular Hemoglobin 32 pg High 27-31 Mean Corpuscular HGB Conc 35 g/dL Normal 31-36 Red Cell Distribution Width 18 % High 10-15 Platelet Count 188 10^3/uL Normal 150-450 Mean Platelet Volume 6.9 fL Low 7.4-10.4 Abs Neutrophils 4.6 10^3/uL Normal 1.5-7.7 Abs Lymphocytes 0.7 10^3/uL Low 1.0-4.8 Abs Monocytes 0.6 10^3/uL Normal 0-0.8 Abs Eosinophils 0.2 10^3/uL Normal 0-0.6 Abs Basophils 0.0 10^3/uL Normal 0-0.2 Abs Nucleated RBC 0.0 10^3/uL Granulocyte % 75.0 % Lymphocyte % 11.1 % Monocyte % 9.8 % Eosinophil % 3.4 % Basophil % 0.7 % Nucleated Red Blood Cells % 0.2 Comp Metabolic 04/11/2019 [facility] Sodium 136 mmol/L Normal 135-145 Panel [address] [place] [address] [phone] Potassium 4.8 mmol/L Normal 3.5-5.0 Chloride 100 mmol/L Low 101-111 Co2 Carbon Dioxide 28 mmol/L Normal 22-32 Anion Gap 8 mmol/L Normal 2-11 Glucose 179 mg/dL High 70-100 Blood Urea Nitrogen 23 mg/dL Normal 6-24 Creatinine 1.35 mg/dL High 0.67-1.17 BUN/Creatinine Ratio 17.0 Normal 8-20 Calcium 9.9 mg/dL Normal 8.6-10.3 Total Protein 6.9 g/dL Normal 6.4-8.9 Albumin 4.3 g/dL Normal 3.2-5.2 Globulin 2.6 g/dL Normal 2-4 Albumin/Globulin Ratio 1.7 Normal 1-3 Total Bilirubin 0.50 mg/dL Normal 0.2-1.0 Alkaline Phosphatase 88 U/L Normal 34-104 Alt 33 U/L Normal 7-52 Ast 22 U/L Normal 13-39 Egfr Non- 51.5 >60 Egfr 62.3 >60 10 Laboratory test 04/11/2019 [facility] Phosphorus 3.5 mg/dL Normal 2.5-5.0 finding [address] [place] [address] [phone] Magnesium 1.6 mg/dL Low 1.9-2.7 LDH 156 U/L Normal 140-271 Tacrolimus To Other Lab 8.2 ng/mL 11 Comp Metabolic 04/04/2019 [facility] Sodium 136 mmol/L Normal 135-145 Panel [address] [place] [address] [phone] Potassium 4.7 mmol/L Normal 3.5-5.0 Chloride 101 mmol/L Normal 101-111 Co2 Carbon Dioxide 29 mmol/L Normal 22-32 Anion Gap 6 mmol/L Normal 2-11 Glucose 170 mg/dL High 70-100 Blood Urea Nitrogen 21 mg/dL Normal 6-24 Creatinine 1.35 mg/dL High 0.67-1.17 BUN/Creatinine Ratio 15.6 Normal 8-20 Calcium 9.8 mg/dL Normal 8.6-10.3 Total Protein 6.9 g/dL Normal 6.4-8.9 Albumin 4.2 g/dL Normal 3.2-5.2 Globulin 2.7 g/dL Normal 2-4 Albumin/Globulin Ratio 1.6 Normal 1-3 Total Bilirubin 0.40 mg/dL Normal 0.2-1.0 Alkaline Phosphatase 75 U/L Normal 34-104 Alt 24 U/L Normal 7-52 Ast 18 U/L Normal 13-39 Egfr Non- 51.5 >60 Egfr 62.3 >60 12 CBC Auto 04/04/2019 [facility] White Blood 5.5 10^3/uL Normal 3.5-10.[address] [place] [address] [phone] Red Blood Count 4.18 10^6/uL Normal 4.18-5.48 Hemoglobin 13.3 g/dL Low 14.0-18.0 Hematocrit 39 % Low 42-52 Mean Corpuscular Volume 93 fL Normal 80-94 Mean Corpuscular Hemoglobin 32 pg High 27-31 Mean Corpuscular HGB Conc 34 g/dL Normal 31-36 Red Cell Distribution Width 18 % High 10-15 Platelet Count 172 10^3/uL Normal 150-450 Mean Platelet Volume 6.9 fL Low 7.4-10.4 Abs Neutrophils 4.0 10^3/uL Normal 1.5-7.7 Abs Lymphocytes 0.7 10^3/uL Low 1.0-4.8 Abs Monocytes 0.6 10^3/uL Normal 0-0.8 Abs Eosinophils 0.2 10^3/uL Normal 0-0.6 Abs Basophils 0.1 10^3/uL Normal 0-0.2 Abs Nucleated RBC 0.0 10^3/uL Granulocyte % 73.1 % Lymphocyte % 12.3 % Monocyte % 10.4 % Eosinophil % 3.3 % Basophil % 0.9 % Nucleated Red Blood Cells % 0.0 Laboratory test 04/04/2019 [facility] Phosphorus 3.8 mg/dL Normal 2.5-5.[address] [place] [address] [phone] Magnesium 1.5 mg/dL Low 1.9-2.7 LDH 140 U/L Normal 140-271 Tacrolimus To Other Lab 10.5 ng/mL 13 Comp Metabolic 03/28/2019 [facility] Sodium 138 mmol/L Normal 135-[address] [place] [address] [phone] Potassium 4.6 mmol/L Normal 3.5-5.0 Chloride 102 mmol/L Normal 101-111 Co2 Carbon Dioxide 30 mmol/L Normal 22-32 Anion Gap 6 mmol/L Normal 2-11 Glucose 139 mg/dL High 70-100 Blood Urea Nitrogen 22 mg/dL Normal 6-24 Creatinine 1.31 mg/dL High 0.67-1.17 BUN/Creatinine Ratio 16.8 Normal 8-20 Calcium 9.9 mg/dL Normal 8.6-10.3 Total Protein 6.7 g/dL Normal 6.4-8.9 Albumin 4.2 g/dL Normal 3.2-5.2 Globulin 2.5 g/dL Normal 2-4 Albumin/Globulin Ratio 1.7 Normal 1-3 Total Bilirubin 0.50 mg/dL Normal 0.2-1.0 Alkaline Phosphatase 81 U/L Normal 34-104 Alt 21 U/L Normal 7-52 Ast 17 U/L Normal 13-39 Egfr Non- 53.3 >60 Egfr 64.5 >60 14 Laboratory test 03/28/2019 [facility] Phosphorus 3.7 mg/dL Normal 2.5-5.[address] [place] [address] [phone] Magnesium 1.6 mg/dL Low 1.9-2.7 LDH 147 U/L Normal 140-271 Tacrolimus To Other Lab 10.5 ng/mL 15 CBC Auto 03/28/2019 [facility] White Blood 5.9 10^3/uL Normal 3.5-10.[address] [place] [address] [phone] Red Blood Count 4.12 10^6/uL Low 4.18-5.48 Hemoglobin 13.1 g/dL Low 14.0-18.0 Hematocrit 38 % Low 42-52 Mean Corpuscular Volume 93 fL Normal 80-94 Mean Corpuscular Hemoglobin 32 pg High 27-31 Mean Corpuscular HGB Conc 34 g/dL Normal 31-36 Red Cell Distribution Width 19 % High 10-15 Platelet Count 195 10^3/uL Normal 150-450 Mean Platelet Volume 7.0 fL Low 7.4-10.4 Abs Neutrophils 4.3 10^3/uL Normal 1.5-7.7 Abs Lymphocytes 0.7 10^3/uL Low 1.0-4.8 Abs Monocytes 0.6 10^3/uL Normal 0-0.8 Abs Eosinophils 0.2 10^3/uL Normal 0-0.6 Abs Basophils 0.1 10^3/uL Normal 0-0.2 Abs Nucleated RBC 0.0 10^3/uL Granulocyte % 73.1 % Lymphocyte % 11.9 % Monocyte % 9.6 % Eosinophil % 4.1 % Basophil % 1.3 % Nucleated Red Blood Cells % 0.2 CBC Auto 03/21/2019 [facility] White Blood 5.7 10^3/uL Normal 3.5-10.[address] [place] [address] [phone] Red Blood Count 4.04 10^6/uL Low 4.18-5.48 Hemoglobin 12.7 g/dL Low 14.0-18.0 Hematocrit 37 % Low 42-52 Mean Corpuscular Volume 93 fL Normal 80-94 Mean Corpuscular Hemoglobin 31 pg Normal 27-31 Mean Corpuscular HGB Conc 34 g/dL Normal 31-36 Red Cell Distribution Width 19 % High 10-15 Platelet Count 206 10^3/uL Normal 150-450 Mean Platelet Volume 6.8 fL Low 7.4-10.4 Abs Neutrophils 4.1 10^3/uL Normal 1.5-7.7 Abs Lymphocytes 0.7 10^3/uL Low 1.0-4.8 Abs Monocytes 0.6 10^3/uL Normal 0-0.8 Abs Eosinophils 0.2 10^3/uL Normal 0-0.6 Abs Basophils 0.1 10^3/uL Normal 0-0.2 Abs Nucleated RBC 0.0 10^3/uL Granulocyte % 72.2 % Lymphocyte % 12.3 % Monocyte % 10.7 % Eosinophil % 3.5 % Basophil % 1.3 % Nucleated Red Blood Cells % 0.0 Comp Metabolic 03/21/2019 [facility] Sodium 140 mmol/L Normal 135-[address] [place] [address] [phone] Potassium 4.7 mmol/L Normal 3.5-5.0 Chloride 105 mmol/L Normal 101-111 Co2 Carbon Dioxide 28 mmol/L Normal 22-32 Anion Gap 7 mmol/L Normal 2-11 Glucose 158 mg/dL High 70-100 Blood Urea Nitrogen 20 mg/dL Normal 6-24 Creatinine 1.23 mg/dL High 0.67-1.17 BUN/Creatinine Ratio 16.3 Normal 8-20 Calcium 9.8 mg/dL Normal 8.6-10.3 Total Protein 6.7 g/dL Normal 6.4-8.9 Albumin 4.4 g/dL Normal 3.2-5.2 Globulin 2.3 g/dL Normal 2-4 Albumin/Globulin Ratio 1.9 Normal 1-3 Total Bilirubin 0.50 mg/dL Normal 0.2-1.0 Alkaline Phosphatase 74 U/L Normal 34-104 Alt 22 U/L Normal 7-52 Ast 16 U/L Normal 13-39 Egfr Non- 57.4 >60 Egfr 69.4 >60 16 Laboratory test 03/21/2019 [facility] Magnesium 1.5 mg/dL Low 1.9-2.[address] [place] [address] [phone] LDH 171 U/L Normal 140-271 Tacrolimus To Other Lab 9.9 ng/mL 17 CBC Auto 03/14/2019 [facility] White Blood 6.5 10^3/uL Normal 3.5-10.[address] [place] [address] [phone] Red Blood Count 3.96 10^6/uL Low 4.18-5.48 Hemoglobin 12.1 g/dL Low 14.0-18.0 Hematocrit 37 % Low 42-52 Mean Corpuscular Volume 93 fL Normal 80-94 Mean Corpuscular Hemoglobin 31 pg Normal 27-31 Mean Corpuscular HGB Conc 33 g/dL Normal 31-36 Red Cell Distribution Width 20 % High 10-15 Platelet Count 204 10^3/uL Normal 150-450 Mean Platelet Volume 6.8 fL Low 7.4-10.4 Abs Neutrophils 4.7 10^3/uL Normal 1.5-7.7 Abs Lymphocytes 0.6 10^3/uL Low 1.0-4.8 Abs Monocytes 0.5 10^3/uL Normal 0-0.8 Abs Eosinophils 0.5 10^3/uL Normal 0-0.6 Abs Basophils 0.1 10^3/uL Normal 0-0.2 Abs Nucleated RBC 0.0 10^3/uL Granulocyte % 73.3 % Lymphocyte % 9.6 % Monocyte % 8.1 % Eosinophil % 7.6 % Basophil % 1.4 % Nucleated Red Blood Cells % 0.0 Comp Metabolic 03/14/2019 [facility] Sodium 137 mmol/L Normal 135-[address] [place] [address] [phone] Potassium 4.5 mmol/L Normal 3.5-5.0 Chloride 101 mmol/L Normal 101-111 Co2 Carbon Dioxide 30 mmol/L Normal 22-32 Anion Gap 6 mmol/L Normal 2-11 Glucose 145 mg/dL High 70-100 Blood Urea Nitrogen 20 mg/dL Normal 6-24 Creatinine 1.29 mg/dL High 0.67-1.17 BUN/Creatinine Ratio 15.5 Normal 8-20 Calcium 9.7 mg/dL Normal 8.6-10.3 Total Protein 6.7 g/dL Normal 6.4-8.9 Albumin 4.3 g/dL Normal 3.2-5.2 Globulin 2.4 g/dL Normal 2-4 Albumin/Globulin Ratio 1.8 Normal 1-3 Total Bilirubin 0.60 mg/dL Normal 0.2-1.0 Alkaline Phosphatase 75 U/L Normal 34-104 Alt 22 U/L Normal 7-52 Ast 16 U/L Normal 13-39 Egfr Non- 54.3 >60 Egfr 65.7 >60 18 Laboratory test 03/14/2019 [facility] Magnesium 1.5 mg/dL Low 1.9-2.[address] [place] [address] [phone] LDH 164 U/L Normal 140-271 Tacrolimus To Other Lab 12.9 ng/mL 19 CBC Auto 01/17/2019 [facility] White Blood 13.1 10^3/uL High 3.5-10.[address] [place] [address] [phone] Red Blood Count 2.97 10^6/uL Low 4.18-5.48 Hemoglobin 8.5 g/dL Low 14.0-18.0 Hematocrit 26 % Low 42-52 Mean Corpuscular Volume 88 fL Normal 80-94 Mean Corpuscular Hemoglobin 29 pg Normal 27-31 Mean Corpuscular HGB Conc 33 g/dL Normal 31-36 Red Cell Distribution Width 15 % Normal 10-15 Platelet Count 31 10^3/uL Low 150-450 Mean Platelet Volume 8.0 fL Normal 7.4-10.4 Manual Differential 01/17/2019 [facility] Neutrophil % 72.0 % [address] [place] [address] [phone] Lymphocytes % 22.0 % Monocytes % 3.0 % Eosinophils % 3.0 % Nucleated Red Blood Cells/100 9.0 High 0-0 Abs Neutrophils 9.4 10^3/uL High 1.5-7.7 Abs Lymphocytes 2.9 10^3/uL Normal 1.0-4.8 Abs Monocytes 0.4 10^3/uL Normal 0-0.8 Abs Eosinophils 0.4 10^3/uL Normal 0-0.6 RBC Morphology Normal Normal Macrocytosis 1+ Microcytosis 1+ Hypochromasia 1+ Polychromasia 2+ Laboratory test 01/14/2019 [facility] Point of Care 124 mg/dL High 70-100 [address] [place] [address] [phone] Platelet Count 01/14/2019 [facility] Platelet 56 10^3/uL Low 150-[address] [place] [address] [phone] Mean Platelet Volume 7.9 fL Normal 7.4-10.4 CBC No Diff 01/14/2019 [facility] White Blood 17.5 10^3/uL High 3.5-10.[address] [place] [address] [phone] Red Blood Count 2.37 10^6/uL Low 4.18-5.48 Hemoglobin 7.0 g/dL Low 14.0-18.0 Hematocrit 21 % Low 42-52 Mean Corpuscular Volume 87 fL Normal 80-94 Mean Corpuscular Hemoglobin 30 pg Normal 27-31 Mean Corpuscular HGB Conc 34 g/dL Normal 31-36 Red Cell Distribution Width 15 % Normal 10-15 Platelet Count 56 10^3/uL Low 150-450 22 Mean Platelet Volume 7.9 fL Normal 7.4-10.4 Type & Screen 01/14/2019 [facility] Patient Blood Type O Positive [address] [place] [address] [phone] Antibody Screen NEGATIVE Laboratory test 01/14/2019 [facility] Packed SEE RESULTS [address] Cells BELO <[place] [address] NOTE> [phone] CBC Auto Diff 01/11/2019 [facility] White Blood 9.6 10^3/uL Normal 3.5-[address] Count 0.8 [place] [address] [phone] Red Blood Count 2.70 10^6/uL Low 4.18-5.48 Hemoglobin 7.9 g/dL Low 14.0-18.0 Hematocrit 24 % Low 42-52 Mean Corpuscular Volume 88 fL Normal 80-94 Mean Corpuscular Hemoglobin 29 pg Normal 27-31 Mean Corpuscular HGB Conc 33 g/dL Normal 31-36 Red Cell Distribution Width 15 % Normal 10-15 Platelet Count 21 10^3/uL Low 150-450 24 Mean Platelet Volume 7.2 fL Low 7.4-10.4 Abs Neutrophils 5.6 10^3/uL Normal 1.5-7.7 Manual 01/11/2019 [facility] Immature 7.0 % Normal 0-[address] [place] [address] [phone] Neutrophil % 69.0 % Band % 2.0 % Normal 0-8 Lymphocytes % 19.0 % Monocytes % 2.0 % Eosinophils % 3.0 % Metamyelocytes % 1.0 % Normal 0-2 Myelocytes % 4.0 % High 0-1 Nucleated Red Blood Cells/100 7.0 High 0-0 Polychromasia 1+ Anisocytosis 1+ Abs Neutrophils 7.3 10^3/uL Normal 1.5-7.7 Abs Lymphocytes 1.8 10^3/uL Normal 1.0-4.8 Abs Monocytes 0.2 10^3/uL Normal 0-0.8 Abs Eosinophils 0.3 10^3/uL Normal 0-0.6 Laboratory test 01/11/2019 [facility] Platelet SEE RESULTS [address] BELO <[place] [address] Irrad NOTE> [phone] CBC Auto Diff 01/07/2019 [facility] White Blood 9.8 10^3/uL Normal 3.5-[address] Count 0.8 [place] [address] [phone] Red Blood Count 2.70 10^6/uL Low 4.18-5.48 Hemoglobin 7.8 g/dL Low 14.0-18.0 Hematocrit 24 % Low 42-52 Mean Corpuscular Volume 87 fL Normal 80-94 Mean Corpuscular Hemoglobin 29 pg Normal 27-31 Mean Corpuscular HGB Conc 33 g/dL Normal 31-36 Red Cell Distribution Width 15 % Normal 10-15 Platelet Count 34 10^3/uL Low 150-450 Mean Platelet Volume 7.5 fL Normal 7.4-10.4 Manual 01/07/2019 [facility] Immature 9.0 % Normal 0-[address] [place] [address] [phone] Neutrophil % 65.0 % Band % 1.0 % Normal 0-8 Lymphocytes % 15.0 % Monocytes % 7.0 % Eosinophils % 2.0 % Variant Lymph % 2.0 % Normal 0-6 Metamyelocytes % 5.0 % High 0-2 Myelocytes % 3.0 % High 0-1 Nucleated Red Blood Cells/100 5.0 High 0-0 Macrocytosis 1+ Hypochromasia 1+ Polychromasia 1+ Tear Drop Cells 1+ Abs Neutrophils 7.3 10^3/uL Normal 1.5-7.7 Abs Lymphocytes 1.7 10^3/uL Normal 1.0-4.8 Abs Monocytes 0.7 10^3/uL Normal 0-0.8 Abs Eosinophils 0.2 10^3/uL Normal 0-0.6 Type & Screen 01/07/2019 [facility] Patient Blood Type O Positive [address] [place] [address] [phone] Antibody Screen NEGATIVE Laboratory test 01/07/2019 [facility] Packed Cells SEE RESULTS [address] BELO <[place] [address] NOTE> [phone] Blood Bag 01/03/2019 [facility] TxRx Workup: SEE RESULT 27 , [address] [place] [address] Culture [phone] Platelet Count 01/03/2019 [facility] Platelet 56 10^3/uL Low 150-[address] Count [address] [place] [address] [phone] Mean Platelet Volume 7.1 fL Low 7.4-10.4 Transfusion 01/03/2019 [facility] TXRX Unit [id number] Reaction Profile [address] Number [place] [id number] [phone] TXRX Prelim Report (SEE NOTE) 30 Transfusion RXN Interpretation (SEE NOTE) 31 Laboratory test 01/02/2019 [facility] Pheresis SEE RESULTS [address] Platelets [place] [address] NOTE> [phone] CBC Auto Diff 12/31/2018 [facility] White Blood 7.8 10^3/uL Normal 3.5- [address] Count 10.8 [place] [address] [phone] Red Blood Count 2.81 10^6/uL Low 4.18-5.48 Hemoglobin 8.2 g/dL Low 14.0-18.0 Hematocrit 25 % Low 42-52 Mean Corpuscular Volume 87 fL Normal 80-94 Mean Corpuscular Hemoglobin 29 pg Normal 27-31 Mean Corpuscular HGB Conc 33 g/dL Normal 31-36 Red Cell Distribution Width 15 % Normal 10-15 Platelet Count 26 10^3/uL Low 150-450 Mean Platelet Volume 6.9 fL Low 7.4-10.4 Cell Morphology 12/31/2018 [facility] Polychromasia 2+ [address] [place] [address] [phone] Anisocytosis 2+ Manual 12/31/2018 [facility] Immature 3.0 % Normal 0-[address] [place] [address] [phone] Neutrophil % 67.0 % Lymphocytes % 22.0 % Monocytes % 5.0 % Eosinophils % 3.0 % Metamyelocytes % 2.0 % Normal 0-2 Myelocytes % 1.0 % Normal 0-1 Nucleated Red Blood Cells/100 3.0 High 0-0 Polychromasia 2+ Anisocytosis 2+ Abs Neutrophils 5.5 10^3/uL Normal 1.5-7.7 Abs Lymphocytes 1.7 10^3/uL Normal 1.0-4.8 Abs Monocytes 0.4 10^3/uL Normal 0-0.8 Abs Eosinophils 0.2 10^3/uL Normal 0-0.6 CBC Auto 12/28/2018 [facility] White Blood 9.5 10^3/uL Normal 3.5-10.[address] Count [place] [id number] [phone] Red Blood Count 2.86 10^6/uL Low 4.18-5.48 Hemoglobin 8.5 g/dL Low 14.0-18.0 Hematocrit 25 % Low 42-52 Mean Corpuscular Volume 88 fL Normal 80-94 Mean Corpuscular Hemoglobin 30 pg Normal 27-31 Mean Corpuscular HGB Conc 34 g/dL Normal 31-36 Red Cell Distribution Width 15 % Normal 10-15 Platelet Count 34 10^3/uL Low 150-450 33 Mean Platelet Volume 8.1 fL Normal 7.4-10.4 Manual 12/28/2018 [facility] Immature 10.0 % High 0-[address] [place] [address] [phone] Neutrophil % 69.0 % Band % 4.0 % Normal 0-8 Lymphocytes % 10.0 % Monocytes % 6.0 % Eosinophils % 5.0 % Metamyelocytes % 3.0 % High 0-2 Myelocytes % 3.0 % High 0-1 Nucleated Red Blood Cells/100 3.0 High 0-0 Polychromasia 2+ Abs Neutrophils 7.5 10^3/uL Normal 1.5-7.7 Abs Lymphocytes 1.0 10^3/uL Normal 1.0-4.8 Abs Monocytes 0.6 10^3/uL Normal 0-0.8 Abs Eosinophils 0.5 10^3/uL Normal 0-0.6 Platelet Count 12/27/2018 [facility] Platelet Count 41 10^3/uL Low 150-[address] [place] [address] [phone] Mean Platelet Volume 7.5 fL Normal 7.4-10.4 Laboratory 12/26/2018 [facility] Pheresis SEE RESULTS 34, 35 test finding [address] Platelets BELO <[place] [address] NOTE> [phone] CBC Auto Diff 12/24/2018 [facility] White Blood 9.8 10^3/uL Normal 3.5- [address] Count 10.8 [place] [address] [phone] Red Blood Count 3.03 10^6/uL Low 4.18-5.48 Hemoglobin 8.9 g/dL Low 14.0-18.0 Hematocrit 27 % Low 42-52 Mean Corpuscular Volume 88 fL Normal 80-94 Mean Corpuscular Hemoglobin 29 pg Normal 27-31 Mean Corpuscular HGB Conc 34 g/dL Normal 31-36 Red Cell Distribution Width 14 % Normal 10-15 Platelet Count 20 10^3/uL Low 150-450 Mean Platelet Volume 7.6 fL Normal 7.4-10.4 Manual 12/24/2018 [facility] Immature 6.0 % Normal 0-[address] [place] [address] [phone] Neutrophil % 73.0 % Lymphocytes % 14.0 % Monocytes % 4.0 % Eosinophils % 3.0 % Metamyelocytes % 1.0 % Normal 0-2 Myelocytes % 5.0 % High 0-1 Polychromasia 2+ Anisocytosis 2+ Abs Neutrophils 7.7 10^3/uL Normal 1.5-7.7 Abs Lymphocytes 1.4 10^3/uL Normal 1.0-4.8 Abs Monocytes 0.4 10^3/uL Normal 0-0.8 Abs Eosinophils 0.3 10^3/uL Normal 0-0.6 CBC Auto 12/19/2018 [facility] White Blood 7.5 10^3/uL Normal 3.5-10.[address] [place] [address] [phone] Red Blood Count 2.73 10^6/uL Low 4.18-5.48 Hemoglobin 8.1 g/dL Low 14.0-18.0 Hematocrit 24 % Low 42-52 Mean Corpuscular Volume 87 fL Normal 80-94 Mean Corpuscular Hemoglobin 30 pg Normal 27-31 Mean Corpuscular HGB Conc 34 g/dL Normal 31-36 Red Cell Distribution Width 14 % Normal 10-15 Platelet Count 17 10^3/uL Low 150-450 37 Mean Platelet Volume 8.5 fL Normal 7.4-10.4 Abs Neutrophils 5.4 10^3/uL Normal 1.5-7.7 Abs Lymphocytes 1.7 10^3/uL Normal 1.0-4.8 Abs Monocytes 0.2 10^3/uL Normal 0-0.8 Abs Eosinophils 0.2 10^3/uL Normal 0-0.6 Abs Basophils 0.1 10^3/uL Normal 0-0.2 Abs Nucleated RBC 0.1 10^3/uL Granulocyte % 71.6 % Lymphocyte % 22.4 % Monocyte % 2.1 % Eosinophil % 3.2 % Basophil % 0.7 % Nucleated Red Blood Cells % 1.0 Type & Screen 12/19/2018 [facility] Patient Blood Type O Positive [address] [place] [address] [phone] Antibody Screen NEGATIVE Laboratory test 12/19/2018 [facility] Packed SEE RESULTS [address] Cells BELO <[place] [address] NOTE> [phone] CBC Auto Diff 12/17/2018 [facility] White Blood 7.6 10^3/uL Normal 3.5-[address] Count 0.8 [place] [address] [phone] Red Blood Count 2.43 10^6/uL Low 4.18-5.48 Hemoglobin 7.2 g/dL Low 14.0-18.0 Hematocrit 21 % Low 42-52 Mean Corpuscular Volume 88 fL Normal 80-94 Mean Corpuscular Hemoglobin 30 pg Normal 27-31 Mean Corpuscular HGB Conc 34 g/dL Normal 31-36 Red Cell Distribution Width 14 % Normal 10-15 Platelet Count 16 10^3/uL Low 150-450 Mean Platelet Volume 9.6 fL Normal 7.4-10.4 Abs Neutrophils 5.6 10^3/uL Normal 1.5-7.7 Abs Lymphocytes 1.5 10^3/uL Normal 1.0-4.8 Abs Monocytes 0.1 10^3/uL Normal 0-0.8 Abs Eosinophils 0.2 10^3/uL Normal 0-0.6 Abs Basophils 0.1 10^3/uL Normal 0-0.2 Abs Nucleated RBC 0.0 10^3/uL Granulocyte % 73.7 % Lymphocyte % 20.4 % Monocyte % 1.8 % Eosinophil % 3.2 % Basophil % 0.9 % Nucleated Red Blood Cells % 0.6 Type & Screen 12/17/2018 [facility] Patient Blood Type O Positive [address] [place] [address] [phone] Antibody Screen NEGATIVE Laboratory test 12/17/2018 [facility] Packed SEE RESULTS [address] Cells [place]O <[place] [address] NOTE> [phone] CBC Auto Diff 12/13/2018 [facility] White Blood 6.8 10^3/uL Normal 3.5-[address] Count 0.8 [place] [address] [phone] Red Blood Count 2.74 10^6/uL Low 4.18-5.48 Hemoglobin 8.2 g/dL Low 14.0-18.0 Hematocrit 24 % Low 42-52 Mean Corpuscular Volume 87 fL Normal 80-94 Mean Corpuscular Hemoglobin 30 pg Normal 27-31 Mean Corpuscular HGB Conc 35 g/dL Normal 31-36 Red Cell Distribution Width 14 % Normal 10-15 Platelet Count 18 10^3/uL Low 150-450 40 Mean Platelet Volume 8.4 fL Normal 7.4-10.4 Abs Neutrophils 4.9 10^3/uL Normal 1.5-7.7 Abs Lymphocytes 1.7 10^3/uL Normal 1.0-4.8 Abs Monocytes 0.1 10^3/uL Normal 0-0.8 Abs Eosinophils 0.1 10^3/uL Normal 0-0.6 Abs Basophils 0.1 10^3/uL Normal 0-0.2 Abs Nucleated RBC 0.0 10^3/uL Granulocyte % 71.1 % Lymphocyte % 24.4 % Monocyte % 1.8 % Eosinophil % 1.9 % Basophil % 0.8 % Nucleated Red Blood Cells % 0.4 CBC Auto 12/10/2018 [facility] White Blood 5.7 10^3/uL Normal 3.5-10.[address] [place] [address] [phone] Red Blood Count 3.00 10^6/uL Low 4.18-5.48 Hemoglobin 8.7 g/dL Low 14.0-18.0 Hematocrit 26 % Low 42-52 Mean Corpuscular Volume 88 fL Normal 80-94 Mean Corpuscular Hemoglobin 29 pg Normal 27-31 Mean Corpuscular HGB Conc 33 g/dL Normal 31-36 Red Cell Distribution Width 14 % Normal 10-15 Platelet Count 20 10^3/uL Low 150-450 Mean Platelet Volume 8.1 fL Normal 7.4-10.4 Abs Neutrophils 3.6 10^3/uL Normal 1.5-7.7 Abs Lymphocytes 1.8 10^3/uL Normal 1.0-4.8 Abs Monocytes 0.1 10^3/uL Normal 0-0.8 Abs Eosinophils 0.2 10^3/uL Normal 0-0.6 Abs Basophils 0.1 10^3/uL Normal 0-0.2 Abs Nucleated RBC 0.0 10^3/uL Granulocyte % 62.5 % Lymphocyte % 31.9 % Monocyte % 2.0 % Eosinophil % 2.7 % Basophil % 0.9 % Nucleated Red Blood Cells % 0.6 CBC Auto 12/07/2018 [facility] White Blood 6.1 10^3/uL Normal 3.5-10.[address] [place] [address] [phone] Red Blood Count 3.10 10^6/uL Low 4.18-5.48 Hemoglobin 9.0 g/dL Low 14.0-18.0 Hematocrit 27 % Low 42-52 Mean Corpuscular Volume 88 fL Normal 80-94 Mean Corpuscular Hemoglobin 29 pg Normal 27-31 Mean Corpuscular HGB Conc 33 g/dL Normal 31-36 Red Cell Distribution Width 15 % Normal 10-15 Platelet Count 20 10^3/uL Low 150-450 Mean Platelet Volume 7.1 fL Low 7.4-10.4 Manual Differential 12/07/2018 [facility] Neutrophil % 70.0 % [address] [place] [address] [phone] Lymphocytes % 24.0 % Monocytes % 5.0 % Basophil % 1.0 % Nucleated Red Blood Cells/100 4.0 High 0-0 Abs Neutrophils 4.3 10^3/uL Normal 1.5-7.7 Abs Lymphocytes 1.5 10^3/uL Normal 1.0-4.8 Abs Monocytes 0.3 10^3/uL Normal 0-0.8 Abs Basophils 0.1 10^3/uL Normal 0-0.2 Macrocytosis 1+ Microcytosis 1+ Hypochromasia 2+ Polychromasia 1+ Rouleaux 1+ CBC Auto 12/05/2018 [facility] White Blood 7.8 10^3/uL Normal 3.5-10.[address] [place] [address] [phone] Red Blood Count 2.59 10^6/uL Low 4.18-5.48 Hemoglobin 7.4 g/dL Low 14.0-18.0 Hematocrit 23 % Low 42-52 Mean Corpuscular Volume 88 fL Normal 80-94 Mean Corpuscular Hemoglobin 29 pg Normal 27-31 Mean Corpuscular HGB Conc 33 g/dL Normal 31-36 Red Cell Distribution Width 15 % Normal 10-15 Platelet Count 24 10^3/uL Low 150-450 Mean Platelet Volume 7.8 fL Normal 7.4-10.4 Manual 12/05/2018 [facility] Immature 2.0 % Normal 0-[address] [place] [address] [phone] Neutrophil % 68.0 % Lymphocytes % 22.0 % Monocytes % 3.0 % Eosinophils % 4.0 % Basophil % 1.0 % Metamyelocytes % 2.0 % Normal 0-2 Nucleated Red Blood Cells/100 5.0 High 0-0 Abs Neutrophils 5.5 10^3/uL Normal 1.5-7.7 Abs Lymphocytes 1.7 10^3/uL Normal 1.0-4.8 Abs Monocytes 0.2 10^3/uL Normal 0-0.8 Abs Eosinophils 0.3 10^3/uL Normal 0-0.6 Abs Basophils 0.1 10^3/uL Normal 0-0.2 RBC Morphology Normal Normal Hypochromasia 2+ Polychromasia 2+ Laboratory test 12/05/2018 [facility] Pathologist (SEE NOTE) [address] [place] [address] [phone] Type & Screen 12/05/2018 [facility] Patient Blood O Positive [address] [place] [address] [phone] Antibody Screen NEGATIVE Laboratory test 12/05/2018 [facility] Packed SEE RESULTS [address] Cells BELO <[place] [address] NOTE> [phone] Comp Metabolic 12/03/2018 [facility] Sodium 138 mmol/L Normal 135-[address] [place] [address] [phone] Potassium 4.4 mmol/L Normal 3.5-5.0 Chloride 103 mmol/L Normal 101-111 Co2 Carbon Dioxide 30 mmol/L Normal 22-32 Anion Gap 5 mmol/L Normal 2-11 Glucose 123 mg/dL High 70-100 Blood Urea Nitrogen 18 mg/dL Normal 6-24 Creatinine 0.98 mg/dL Normal 0.67-1.17 BUN/Creatinine Ratio 18.4 Normal 8-20 Calcium 9.0 mg/dL Normal 8.6-10.3 Total Protein 6.3 g/dL Low 6.4-8.9 Albumin 4.0 g/dL Normal 3.2-5.2 Globulin 2.3 g/dL Normal 2-4 Albumin/Globulin Ratio 1.7 Normal 1-3 Total Bilirubin 1.80 mg/dL High 0.2-1.0 Alkaline Phosphatase 70 U/L Normal 34-104 Alt 21 U/L Normal 7-52 Ast 23 U/L Normal 13-39 Egfr Non- 74.8 >60 Egfr 90.5 >60 43 CBC Auto 12/03/2018 [facility] White Blood 9.7 10^3/uL Normal 3.5-10.[address] [place] [address] [phone] Red Blood Count 2.63 10^6/uL Low 4.18-5.48 Hemoglobin 7.7 g/dL Low 14.0-18.0 Hematocrit 23 % Low 42-52 Mean Corpuscular Volume 88 fL Normal 80-94 Mean Corpuscular Hemoglobin 29 pg Normal 27-31 Mean Corpuscular HGB Conc 33 g/dL Normal 31-36 Red Cell Distribution Width 16 % High 10-15 Abs Neutrophils 6.7 10^3/uL Normal 1.5-7.7 Abs Lymphocytes 2.5 10^3/uL Normal 1.0-4.8 Abs Monocytes 0.2 10^3/uL Normal 0-0.8 Abs Eosinophils 0.2 10^3/uL Normal 0-0.6 Abs Basophils 0.1 10^3/uL Normal 0-0.2 Abs Nucleated RBC 0.2 10^3/uL Granulocyte % 68.9 % Lymphocyte % 26.4 % Monocyte % 2.2 % Eosinophil % 2.0 % Basophil % 0.5 % Nucleated Red Blood Cells % 2.1 Platelet Count 20 10^3/uL Low 150-450 44 Manual 12/03/2018 [facility] Immature 11.0 % High 0-[address] [place] [address] [phone] Neutrophil % 50.0 % Band % 5.0 % Normal 0-8 Lymphocytes % 34.0 % Monocytes % 1.0 % Eosinophils % 3.0 % Basophil % 1.0 % Metamyelocytes % 4.0 % High 0-2 Myelocytes % 2.0 % High 0-1 Nucleated Red Blood Cells/100 10.0 High 0-0 Hypochromasia 2+ Polychromasia 2+ Anisocytosis 1+ Type & Screen 12/03/2018 [facility] Patient Blood Type O Positive [address] [place] [address] [phone] Antibody Screen NEGATIVE Laboratory test 12/03/2018 [facility] Packed Cells SEE RESULTS [address] [place] <[place] [address] NOTE> [phone] Manual 11/26/2018 [facility] Immature 6.0 % Normal 0-[address] [place] [address] [phone] Neutrophil % 71.0 % Band % 1.0 % Normal 0-8 Lymphocytes % 17.0 % Monocytes % 1.0 % Eosinophils % 5.0 % Metamyelocytes % 2.0 % Normal 0-2 Myelocytes % 3.0 % High 0-1 Nucleated Red Blood Cells/100 2.0 High 0-0 Polychromasia 1+ Anisocytosis 1+ CBC Auto 11/26/2018 [facility] White Blood 9.1 10^3/uL Normal 3.5-10.[address] [place] [address] [phone] Red Blood Count 2.77 10^6/uL Low 4.18-5.48 Hemoglobin 8.1 g/dL Low 14.0-18.0 Hematocrit 24 % Low 42-52 Mean Corpuscular Volume 88 fL Normal 80-94 Mean Corpuscular Hemoglobin 29 pg Normal 27-31 Mean Corpuscular HGB Conc 33 g/dL Normal 31-36 Red Cell Distribution Width 15 % Normal 10-15 Platelet Count 20 10^3/uL Low 150-450 46 Mean Platelet Volume 8.1 fL Normal 7.4-10.4 Abs Neutrophils 6.8 10^3/uL Normal 1.5-7.7 Abs Lymphocytes 1.6 10^3/uL Normal 1.0-4.8 Abs Monocytes 0.2 10^3/uL Normal 0-0.8 Abs Eosinophils 0.4 10^3/uL Normal 0-0.6 Abs Basophils 0.0 10^3/uL Normal 0-0.2 Abs Nucleated RBC 0.1 10^3/uL Granulocyte % 75.0 % Lymphocyte % 17.8 % Monocyte % 2.7 % Eosinophil % 4.0 % Basophil % 0.5 % Nucleated Red Blood Cells % 1.4 CBC Auto 11/22/2018 [facility] White Blood 7.7 10^3/uL Normal 3.5-10.[address] [place] [address] [phone] Red Blood Count 2.43 10^6/uL Low 4.18-5.48 Hemoglobin 7.3 g/dL Low 14.0-18.0 Hematocrit 22 % Low 42-52 Mean Corpuscular Volume 89 fL Normal 80-94 Mean Corpuscular Hemoglobin 30 pg Normal 27-31 Mean Corpuscular HGB Conc 34 g/dL Normal 31-36 Red Cell Distribution Width 14 % Normal 10.5-15 Abs Neutrophils 5.5 10^3/uL Normal 1.5-7.7 Abs Lymphocytes 1.6 10^3/uL Normal 1.0-4.8 Abs Monocytes 0.1 10^3/uL Normal 0-0.8 Abs Eosinophils 0.4 10^3/uL Normal 0-0.6 Abs Basophils 0.0 10^3/uL Normal 0-0.2 Abs Nucleated RBC 0.1 10^3/uL Granulocyte % 71.2 % Lymphocyte % 21.4 % Monocyte % 1.9 % Eosinophil % 5.0 % Basophil % 0.5 % Nucleated Red Blood Cells % 0.9 Platelet Count 17 10^3/uL Low 150-450 47 Mean Platelet Volume 8.3 fL Normal 7.4-10.4 Manual 11/22/2018 [facility] Immature 3.0 % Normal 0-[address] [place] [address] [phone] Neutrophil % 69.0 % Band % 2.0 % Normal 0-8 Lymphocytes % 21.0 % Monocytes % 1.0 % Eosinophils % 5.0 % Basophil % 1.0 % Myelocytes % 1.0 % Normal 0-1 RBC Morphology Normal Normal Type & Screen 11/22/2018 [facility] Patient Blood Type O Positive [address] [place] [address] [phone] Antibody Screen NEGATIVE Laboratory test 11/22/2018 [facility] Packed Cells SEE RESULTS [address] [place]O <[place] [address] NOTE> [phone] 1 Because ethnic data is not always readily available, this report includes an eGFR for both -Americans and non- Americans. The National Kidney Disease Education Program (NKDEP) does not endorse the use of the MDRD equation for patients that are not between the ages of 18 and 70, are , have extremes of body size, muscle mass, or nutritional status, or are non- or non-. According to the National Kidney Foundation, irrespective of diagnosis, the stage of the disease is based on the level of kidney function: Stage Description GFR(mL/min/1.73 m(2)) 1 Kidney damage with normal or decreased GFR 90 2 Kidney damage with mild decrease in GFR 60-89 3 Moderate decrease in GFR 30-59 4 Severe decrease in GFR 15-29 5 Kidney failure <15 (or dialysis) 2 REFERENCE VALUE 5.0-15.0 (Trough) ADDITIONAL INFORMATION Target steady-state trough concentrations vary depending on the type of transplant, concomitant immunosuppression, clinical/institutional protocols, and time post-transplant. Results should be interpreted in conjunction with this clinical information and any physical signs/symptoms of rejection/toxicity. Testing performed by Liquid Chromatography-Tandem Mass Spectrometry (LC-MS/MS). This test was developed and its performance characteristics determined by [facility] in a manner consistent with CLIA requirements. This test has not been cleared or approved by the U.S. Food and Drug Administration. Test Performed by: [facility] [place] [address] Car Lot Attendant: Alexis Peter M.D. Ph.D.; CLIA# [id number] 3 Because ethnic data is not always readily available, this report includes an eGFR for both -Americans and non- Americans. The National Kidney Disease Education Program (NKDEP) does not endorse the use of the MDRD equation for patients that are not between the ages of 18 and 70, are , have extremes of body size, muscle mass, or nutritional status, or are non- or non-. According to the National Kidney Foundation, irrespective of diagnosis, the stage of the disease is based on the level of kidney function: Stage Description GFR(mL/min/1.73 m(2)) 1 Kidney damage with normal or decreased GFR 90 2 Kidney damage with mild decrease in GFR 60-89 3 Moderate decrease in GFR 30-59 4 Severe decrease in GFR 15-29 5 Kidney failure <15 (or dialysis) 4 REFERENCE VALUE 5.0-15.0 (Trough) ADDITIONAL INFORMATION Target steady-state trough concentrations vary depending on the type of transplant, concomitant immunosuppression, clinical/institutional protocols, and time post-transplant. Results should be interpreted in conjunction with this clinical information and any physical signs/symptoms of rejection/toxicity. Testing performed by Liquid Chromatography-Tandem Mass Spectrometry (LC-MS/MS). This test was developed and its performance characteristics determined by [facility] in a manner consistent with CLIA requirements. This test has not been cleared or approved by the [place]. Food and Drug Administration. Test Performed by: [facility] [place] [place] [address] Car Lot Attendant: Alexis Peter M.D. Ph.D.; CLIA# [id number] 5 Because ethnic data is not always readily available, this report includes an eGFR for both -Americans and non- Americans. The National Kidney Disease Education Program (NKDEP) does not endorse the use of the MDRD equation for patients that are not between the ages of 18 and 70, are , have extremes of body size, muscle mass, or nutritional status, or are non- or non-. According to the National Kid[employer] Foundation, irrespective of diagnosis, the stage of the disease is based on the level of kidney function: Stage Description GFR(mL/min/1.73 m(2)) 1 Kidney damage with normal or decreased GFR 90 2 Kidney damage with mild decrease in GFR 60-89 3 Moderate decrease in GFR 30-59 4 Severe decrease in GFR 15-29 5 Kidney failure <15 (or dialysis) 6 REFERENCE VALUE 5.0-15.0 (Trough) ADDITIONAL INFORMATION Target steady-state trough concentrations vary depending on the type of transplant, concomitant immunosuppression, clinical/institutional protocols, and time post-transplant. Results should be interpreted in conjunction with this clinical information and any physical signs/symptoms of rejection/toxicity. Testing performed by Liquid Chromatography-Tandem Mass Spectrometry (LC-MS/MS). This test was developed and its performance characteristics determined by [facility] in a manner consistent with CLIA requirements. This test has not been cleared or approved by the U.S. Food and Drug Administration. Test Performed by: [facility] [place] [address] Car Lot Attendant: Alexis Peter M.D. Ph.D.; CLIA# [id number] 7 Because ethnic data is not always readily available, this report includes an eGFR for both -Americans and non- Americans. The National Kidney Disease Education Program (NKDEP) does not endorse the use of the MDRD equation for patients that are not between the ages of 18 and 70, are , have extremes of body size, muscle mass, or nutritional status, or are non- or non-. According to the National Kidney Foundation, irrespective of diagnosis, the stage of the disease is based on the level of kidney function: Stage Description GFR(mL/min/1.73 m(2)) 1 Kidney damage with normal or decreased GFR 90 2 Kidney damage with mild decrease in GFR 60-89 3 Moderate decrease in GFR 30-59 4 Severe decrease in GFR 15-29 5 Kidney failure <15 (or dialysis) 8 REFERENCE VALUE 5.0-15.0 (Trough) ADDITIONAL INFORMATION Target steady-state trough concentrations vary depending on the type of transplant, concomitant immunosuppression, clinical/institutional protocols, and time post-transplant. Results should be interpreted in conjunction with this clinical information and any physical signs/symptoms of rejection/toxicity. Testing performed by Liquid Chromatography-Tandem Mass Spectrometry (LC-MS/MS). This test was developed and its performance characteristics determined by [facility] in a manner consistent with CLIA requirements. This test has not been cleared or approved by the U.S. Food and Drug Administration. Test Performed by: [facility] [place] [address] Car Lot Attendant: Alexis Peter M.D. Ph.D.; CLIA# [id number] 9 Because ethnic data is not always readily available, this report includes an eGFR for both -Americans and non- Americans. The National Kidney Disease Education Program (NKDEP) does not endorse the use of the MDRD equation for patients that are not between the ages of 18 and 70, are , have extremes of body size, muscle mass, or nutritional status, or are non- or non-. According to the National Kidney Foundation, irrespective of diagnosis, the stage of the disease is based on the level of kidney function: Stage Description GFR(mL/min/1.73 m(2)) 1 Kidney damage with normal or decreased GFR 90 2 Kidney damage with mild decrease in GFR 60-89 3 Moderate decrease in GFR 30-59 4 Severe decrease in GFR 15-29 5 Kidney failure <15 (or dialysis) 10 Because ethnic data is not always readily available, this report includes an eGFR for both -Americans and non- Americans. The National Kidney Disease Education Program (NKDEP) does not endorse the use of the MDRD equation for patients that are not between the ages of 18 and 70, are , have extremes of body size, muscle mass, or nutritional status, or are non- or non-. According to the National Kidney Foundation, irrespective of diagnosis, the stage of the disease is based on the level of kidney function: Stage Description GFR(mL/min/1.73 m(2)) 1 Kidney damage with normal or decreased GFR 90 2 Kidney damage with mild decrease in GFR 60-89 3 Moderate decrease in GFR 30-59 4 Severe decrease in GFR 15-29 5 Kidney failure <15 (or dialysis) 11 REFERENCE VALUE 5.0-15.0 (Trough) ADDITIONAL INFORMATION Target steady-state trough concentrations vary depending on the type of transplant, concomitant immunosuppression, clinical/institutional protocols, and time post-transplant. Results should be interpreted in conjunction with this clinical information and any physical signs/symptoms of rejection/toxicity. Testing performed by Liquid Chromatography-Tandem Mass Spectrometry (LC-MS/MS). This test was developed and its performance characteristics determined by [facility] in a manner consistent with CLIA requirements. This test has not been cleared or approved by the U.S. Food and Drug Administration. Test Performed by: [facility] - [address] [address] Car Lot Attendant: Alexis Peter M.D. Ph.D.; CLIA# [id number] 12 Because ethnic data is not always readily available, this report includes an eGFR for both -Americans and non- Americans. The National Kidney Disease Education Program (NKDEP) does not endorse the use of the MDRD equation for patients that are not between the ages of 18 and 70, are , have extremes of body size, muscle mass, or nutritional status, or are non- or non-. According to the National Kidney Foundation, irrespective of diagnosis, the stage of the disease is based on the level of kidney function: Stage Description GFR(mL/min/1.73 m(2)) 1 Kidney damage with normal or decreased GFR 90 2 Kidney damage with mild decrease in GFR 60-89 3 Moderate decrease in GFR 30-59 4 Severe decrease in GFR 15-29 5 Kidney failure <15 (or dialysis) 13 REFERENCE VALUE 5.0-15.0 (Trough) ADDITIONAL INFORMATION Target steady-state trough concentrations vary depending on the type of transplant, concomitant immunosuppression, clinical/institutional protocols, and time post-transplant. Results should be interpreted in conjunction with this clinical information and any physical signs/symptoms of rejection/toxicity. Testing performed by Liquid Chromatography-Tandem Mass Spectrometry (LC-MS/MS). This test was developed and its performance characteristics determined by [facility] in a manner consistent with CLIA requirements. This test has not been cleared or approved by the U.S. Food and Drug Administration. Test Performed by: [facility] - [address] [place] [address] Car Lot Attendant: Alexis Peter M.D. Ph.D.; CLIA# [id number] 14 Because ethnic data is not always readily available, this report includes an eGFR for both -Americans and non- Americans. The National Kidney Disease Education Program (NKDEP) does not endorse the use of the MDRD equation for patients that are not between the ages of 18 and 70, are , have extremes of body size, muscle mass, or nutritional status, or are non- or non-. According to the National Kidney Foundation, irrespective of diagnosis, the stage of the disease is based on the level of kidney function: Stage Description GFR(mL/min/1.73 m(2)) 1 Kidney damage with normal or decreased GFR 90 2 Kidney damage with mild decrease in GFR 60-89 3 Moderate decrease in GFR 30-59 4 Severe decrease in GFR 15-29 5 Kidney failure <15 (or dialysis) 15 REFERENCE VALUE 5.0-15.0 (Trough) ADDITIONAL INFORMATION Target steady-state trough concentrations vary depending on the type of transplant, concomitant immunosuppression, clinical/institutional protocols, and time post-transplant. Results should be interpreted in conjunction with this clinical information and any physical signs/symptoms of rejection/toxicity. Testing performed by Liquid Chromatography-Tandem Mass Spectrometry (LC-MS/MS). This test was developed and its performance characteristics determined by [facility] in a manner consistent with CLIA requirements. This test has not been cleared or approved by the U.S. Food and Drug Administration. Test Performed by: [facility] [place] [address] Car Lot Attendant: Alexis Peter M.D. Ph.D.; CLIA# [id number] 16 Because ethnic data is not always readily available, this report includes an eGFR for both -Americans and non- Americans. The National Kidney Disease Education Program (NKDEP) does not endorse the use of the MDRD equation for patients that are not between the ages of 18 and 70, are , have extremes of body size, muscle mass, or nutritional status, or are non- or non-. According to the National Kidney Foundation, irrespective of diagnosis, the stage of the disease is based on the level of kidney function: Stage Description GFR(mL/min/1.73 m(2)) 1 Kidney damage with normal or decreased GFR 90 2 Kidney damage with mild decrease in GFR 60-89 3 Moderate decrease in GFR 30-59 4 Severe decrease in GFR 15-29 5 Kidney failure <15 (or dialysis) 17 REFERENCE VALUE 5.0-15.0 (Trough) ADDITIONAL INFORMATION Target steady-state trough concentrations vary depending on the type of transplant, concomitant immunosuppression, clinical/institutional protocols, and time post-transplant. Results should be interpreted in conjunction with this clinical information and any physical signs/symptoms of rejection/toxicity. Testing performed by Liquid Chromatography-Tandem Mass Spectrometry (LC-MS/MS). This test was developed and its performance characteristics determined by [facility] in a manner consistent with CLIA requirements. This test has not been cleared or approved by the U.S. Food and Drug Administration. Test Performed by: [facility] - [address] [place] [address] Car Lot Attendant: Alexis Peter M.D. Ph.D.; CLIA# [id number] 18 Because ethnic data is not always readily available, this report includes an eGFR for both -Americans and non- Americans. The National Kidney Disease Education Program (NKDEP) does not endorse the use of the MDRD equation for patients that are not between the ages of 18 and 70, are , have extremes of body size, muscle mass, or nutritional status, or are non- or non-. According to the National Kidney Foundation, irrespective of diagnosis, the stage of the disease is based on the level of kidney function: Stage Description GFR(mL/min/1.73 m(2)) 1 Kidney damage with normal or decreased GFR 90 2 Kidney damage with mild decrease in GFR 60-89 3 Moderate decrease in GFR 30-59 4 Severe decrease in GFR 15-29 5 Kidney failure <15 (or dialysis) 19 REFERENCE VALUE 5.0-15.0 (Trough) ADDITIONAL INFORMATION Target steady-state trough concentrations vary depending on the type of transplant, concomitant immunosuppression, clinical/institutional protocols, and time post-transplant. Results should be interpreted in conjunction with this clinical information and any physical signs/symptoms of rejection/toxicity. Testing performed by Liquid Chromatography-Tandem Mass Spectrometry (LC-MS/MS). This test was developed and its performance characteristics determined by [facility] in a manner consistent with CLIA requirements. This test has not been cleared or approved by the U.S. Food and Drug Administration. Test Performed by: [address] [place] [address] Car Lot Attendant: Alexis Peter M.D. Ph.D.; CLIA# [id number] 20 Golf Course Superintendent: [id number] Consistent with Previous Results Reported on 01/11/19 22 Consistent with Previous Results Reported on 01/11/19 23 SEE RESULTS BELOW [id number] OP PC TRANSFUSED 01/15/19 1310 24 Consistent with Previous Results Reported on 01/07/2019 25 SEE RESULTS BELOW [id number] OP PHPLTLRIRR TRANSFUSED 01/14/19 0922 [id number] OP PHPLTLRIRR TRANSFUSED 01/14/19 1003 26 SEE RESULTS BELOW [id number] OP PC TRANSFUSED 01/07/19 1206 27 D64.21 28 SEE RESULT BELOW Name: LENNOX SMITH : [address]: Cheryl Taylor MD Acct: [id number] Unit: [id number] AGE: 73 Location: INF Re01/03/19 SEX: M Status: REG REF SPEC: [id number] RAEGAN: 01/03/19-[address] [facility] [address]: Cheryl Taylor MD REQ: [id number] RECD: 01/03/19 STATUS: COURTNEY HOOD DR: Domenica Eid MD _ SOURCE: BLOOD BAG SPDESC: ORDERED: TxRx BB Cult Procedure Result Reported Site TxRx Workup: BB Bag Culture Final 01/08/19- 1021 ML No Growth Day 5 Blood Bag Gram Stain Final 01/03/19- 1040 ML Blood Bag Gram Stain No Organisms Seen * ML - Main Lab . END OF REPORT DEPARTMENT OF PATHOLOGY, [address] [place] [address] Mumtaz Lou M.D. Director [facility] # [id number] 29 Consistent with Previous Results Reported on 12/31/18 30 Extended workup not necessary. Results called to (JOSE) by [id number] at 0955 on 01/03/19. Pathologist notified by [id number] at 0950 on 01/03/19. OK to continue transfusions. 31 Allergic Reviewed by Mariaelena Terrazas MD 32 SEE RESULTS BELOW [id number] OP PHPLT TRANSFUSED 01/03/19 0846 [id number] OP PHPLT TRANSFUSED 01/03/19 0935 33 Consistent with Previous Results Reported on 12/27/18 34 D46.21 35 SEE RESULTS BELOW [id number] ABP PHPLT TRANSFUSED 12/27/18 0814 [id number] AP PHPLT TRANSFUSED 12/27/18 0906 36 WAITING FOR RESULTS 37 Consistent with Previous Results Reported on 12/17/18 38 SEE RESULTS BELOW [id number] OP PC TRANSFUSED 12/21/18 1352 39 SEE RESULTS BELOW [id number] OP PC TRANSFUSED 12/17/18 0952 40 Consistent with Previous Results Reported on 12/10/18 41 Normocytic anemia. Marked thrombocytopenia. No evidence of a hemolytic process. Reviewed by Mariaelena Terrazas MD 42 SEE RESULTS BELOW [id number] OP PC TRANSFUSED 12/05/18 1205 [id number] OP PC TRANSFUSED 12/05/18 1414 43 Because ethnic data is not always readily available, this report includes an eGFR for both -Americans and non- Americans. The National Kidney Disease Education Program (NKDEP) does not endorse the use of the MDRD equation for patients that are not between the ages of 18 and 70, are , have extremes of body size, muscle mass, or nutritional status, or are non- or non-. According to the National Kidney Foundation, irrespective of diagnosis, the stage of the disease is based on the level of kidney function: Stage Description GFR(mL/min/1.73 m(2)) 1 Kidney damage with normal or decreased GFR 90 2 Kidney damage with mild decrease in GFR 60-89 3 Moderate decrease in GFR 30-59 4 Severe decrease in GFR 15-29 5 Kidney failure <15 (or dialysis) 44 Platelet count confirmed by estimate 45 SEE RESULTS BELOW [id number] OP PC TRANSFUSED 12/03/18 1156 46 Consistent with Previous Results Reported on 11/22/18 47 Platelet count confirmed by estimate 48 SEE RESULTS BELOW [id number] OP PC TRANSFUSED 11/22/18 1120 Procedures Date Code Description Status 05/22/2019 72166 EKG Tracing & Interpretation Completed 04/24/2019 30921 Removal Tunneled Central Venous Access Dev W/Sub Completed Port/Pump 01/14/2019 22702 Fluoroscopic Guidance For Cent Completed 01/14/2019 52282 Insertion Tunneled Cent Venous Cathr W Subcut Port 5 Completed Yrs Or Oldr 12/18/2018 27636 Diffusing Capacity Completed 12/18/2018 20555 Plethysmography Determination Lung Volumes & Per Completed Airway Resist 12/18/2018 93529 Pulmonary Function><Bronchodil Completed 12/18/2018 22581 ECHO Transthorasic Realtime 2D W Doppler & Color Flow Completed Hosp 05/28/2018 [id number] Diabetic Retinal Eye Exam Completed 01/03/2018 84001340 Colonoscopy Completed 10/31/2016 [id number] Diabetic Retinal Eye Exam Completed 12/11/2015 466422631 Diabetic Retinal Eye Exam Completed 04/15/2015 541962035 Diabetic Retinal Eye Exam Completed 01/01/2014 977130527 Diabetic Retinal Eye Exam Completed 12/19/2012 184058427 Diabetic Retinal Eye Exam Completed 11/09/2011 772996608 Diabetic Retinal Eye Exam Completed 04/18/2011 09449532 Colonoscopy Completed 04/26/2001 49266544 Colonoscopy Completed Medical Devices Description No Information Available Encounters Type Date Location Provider Dx Diagnosis Office Visit 01/04/2019 Surgical Miko Dumont, D46.9 Myelodysplastic 10:00a [facility], FACS syndrome, unspecified Assessments Date Code Description Provider 05/22/2019 I48.20 Chronic atrial fibrillation, unspecified Jeovany Quinones, DO FACC 05/22/2019 E11.9 Type 2 diabetes mellitus without Jeovany S. 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 cardiovascular examination Plan of Treatment 05/22/2019 - Jeovany Quinones, DO FACCI48.20 Chronic atrial fibrillation, unspecifiedComments:Please check with Dr. Horner next week about whether you can restart coumadin or not. If you are able to restart, please contact Dr. Eid's office about restarting.Follow up:f/u 1 yearE11.9 Type 2 diabetes mellitus without [id number] Essential (primary) tojoxadusilxL33.3 Ventricular premature depolarization Functional Status Description No Information Available Mental Status Description No Information Available Referrals Description No Information Available
--- OUTSIDE RECORDS SUMMARY | 2019-07-16 16:22 | XMS REPORT | Continuity of Care Document ---
:1945 External Reference #:[id number] Author Name Domenica Eid M.D. (transmitted by agent of provider Cheyenne Marie) Address [address] [facility]– [place], [place] [address] Care Team Providers Name Role Phone Drae Barros MD - Cardiovascular Care Team Information Lumber Carrier Operator Disease Jeovany Quinones DO, [facility] - Care Team Information Lumber Carrier Operator [phone] Cardiovascular Disease Problems Active Problems Provider Date Type 2 diabetes mellitus Domenica Eid M.D. Onset: 07/17/2011 Chronic atrial fibrillation Domenica Eid M.D. Onset: 04/10/2015 Essential hypertension Jeovany Quinones DO [facility] Onset: 04/23/2015 Myelodysplastic syndrome (clinical) Domenica Eid [...] Ultra Blue test daily or 75units Domenica Eid, 01/29/2018 as needed M.D. Strips e11.9 - Patient last seeen on 01/12/18 Onetouch Delica use for testing 100units Domenica Ham[place], 01/26/2018 Lancets Fine 30G blood sugar M.D. 30G once daily [facility] Glucocom Blood for testing 1units Domenica [place], 12/16/2016 Glucose Monitoring once daily M.D. System Value Kit (monitor per plan) dx e11.65 W/Device Kit Lancets for blood sugar 50units Domenica [place], 12/16/2016 [facility] daily Levothyroxine Sodium Take One By 90tabs Domenica [place], 11/19/2009 Mouth Daily M.D. 112mcg Tablets Protonix [...] ER 24HR Furosemide one daily 90tabs Domenica Hamden, 40mg Tablets M.D. Tamsulosin HCL 1 by mouth 90caps [facility], 0.4mg every day M.D. Capsules Multi For Him 50+ 1 po qd Unknown Tablets History Medications Metoprolol Succinate 1 and 1/2 tabs 135tabs Domenica [place], 12/12/2018 - Unknown ER po qd M.D. 100mg Tablets ER 24HR Medications Administered in Office Medication SIG Qnty Indications Ordering Provider Date Inj, Regadenoson, 0.1 MG Jeovany Quinones, DO [facility] 01/11/2017 Injection Technetium TC 99M Jeovany Quinones, DO [facility] 01/11/2017 Tetrofosmin, Per Unit Dose Up To 40 Millicuries Injection Immunizations CPT Code Status Date Vaccine Lot # [id number] Given 02/26/2018 Zoster (Shingles) Vaccine (HZV), Recombinant, Subunit, Adjuvanted 13005 Given 12/26/2017 Zoster (Shingles) Vaccine (HZV), Recombinant, Subunit, Adjuvanted Q2039 Given 03/29/2016 Flu Vaccine NOS 02852 Given 04/10/2015 Influenza Virus Vaccine, Quadrivalent, Split, [id number] Preservative Free 67879 Given 04/10/2015 Pneumococcal Conjugate Vaccine 13 Valent For [id number] Intramuscular Use 31429 Given 04/04/2013 Flu Vaccine Split Virus Preservative Free For [id number] Indiv 3Yr Older Q2038 Given 04/02/2012 Fluzone Vaccine [id number] 80896 Given 04/02/2012 Pneumonia Vaccine [id number] Q2035 Given 03/28/2011 Afluria Vaccine [id number] 98375 Given 03/31/2008 Influenza Virus 3Yrs & Over 14473 Given 03/31/2008 Influenza Virus 3Yrs & Over 32343 Given 07/09/2007 Zoster (Zostavax) 32785 Given 07/09/2007 Zoster (Zostavax) 64363 Given 04/10/2007 Influenza Virus 3Yrs & Over 43535 Given 07/04/2006 Pneumonia Vaccine 10644 Given 03/27/2006 Influenza Virus 3Yrs & Over 80400 Given 03/27/2006 Influenza Virus 3Yrs & Over [...] Date Facility Test Result H/L Range Note CBC Auto 06/03/2019 [facility] White Blood 3.7 10^3/uL Normal 3.5-10.[address] [place] [address] [phone] Red Blood Count 3.66 10^6/uL Low 4.18-5.48 Hemoglobin 12.7 g/dL Low 14.0-18.0 Hematocrit 35 % Low 42-52 Mean Corpuscular Volume 97 fL High 80-94 Mean Corpuscular Hemoglobin 35 pg High 27-31 Mean Corpuscular HGB Conc 36 g/dL Normal 31-36 Red Cell Distribution Width 18 % High 10-15 Platelet Count 155 10^3/uL Normal 150-450 Mean Platelet Volume 6.3 fL Low 7.4-10.4 Abs Neutrophils 2.5 10^3/uL Normal 1.5-7.7 Abs Lymphocytes 0.7 10^3/uL Low 1.0-4.8 Abs Monocytes 0.5 10^3/uL Normal 0-0.8 Abs Eosinophils 0.1 10^3/uL Normal 0-0.6 Abs Basophils 0.0 10^3/uL Normal 0-0.2 Abs Nucleated RBC 0.0 10^3/uL Granulocyte % 65.9 % Lymphocyte % 18.5 % Monocyte % 12.7 % Eosinophil % 2.2 % Basophil % 0.7 % Nucleated Red Blood Cells % 0.4 Comp Metabolic 06/03/2019 [facility] Sodium 138 mmol/L Normal 135-[address] [place] [address] [phone] Potassium 4.7 mmol/L Normal 3.5-5.0 Chloride 103 mmol/L Normal 101-111 Co2 Carbon Dioxide 27 mmol/L Normal 22-32 Anion Gap 8 mmol/L Normal 2-11 Glucose 158 mg/dL High 70-100 Blood Urea Nitrogen 26 mg/dL High 6-24 Creatinine 1.44 mg/dL High 0.67-1.17 BUN/Creatinine Ratio 18.1 Normal 8-20 Calcium 9.7 mg/dL Normal 8.6-10.3 Total Protein 6.7 g/dL Normal 6.4-8.9 Albumin 4.2 g/dL Normal 3.2-5.2 Globulin 2.5 g/dL Normal 2-4 Albumin/Globulin Ratio 1.7 Normal 1-3 Total Bilirubin 0.60 mg/dL Normal 0.2-1.0 Alkaline Phosphatase 83 U/L Normal 34-104 Alt 35 U/L Normal 7-52 Ast 22 U/L Normal 13-39 Egfr Non- 47.8 >60 Egfr 57.9 >60 1 Laboratory test 06/03/2019 [facility] Phosphorus 3.4 mg/dL Normal 2.5-5.[address] [place] [address] [phone] Magnesium 1.8 mg/dL Low 1.9-2.7 LDH 147 U/L Normal 140-271 Tacrolimus To Other Lab 5.3 ng/mL 2 CBC Auto 05/21/2019 [facility] White Blood 3.6 10^3/uL Normal 3.5-10.[address] [place] [address] [phone] Red Blood Count 3.81 10^6/uL Low 4.18-5.48 [...] % Nucleated Red Blood Cells % 0.1 Laboratory test 05/21/2019 [facility] Phosphorus 3.5 mg/dL Normal 2.5-5.[address] [place] [address] [phone] Magnesium 1.5 mg/dL Low 1.9-2.7 LDH 150 U/L Normal 140-271 Tacrolimus To Other Lab 5.9 ng/mL 3 Laboratory test 05/21/2019 [facility] Red Cell 18 % High 10- [address] [place] [address] Width [phone] Comp Metabolic 05/21/2019 [facility] Sodium 139 Normal 135- [address] mmol/[place] [address] [phone] Potassium 4.4 mmol/L Normal 3.5-5.0 Chloride 103 [...] Egfr Non- 51.5 >60 Egfr 62.3 >60 4 Laboratory test 05/09/2019 [facility] Phosphorus 3.2 mg/dL Normal 2.5-5.[address] [place] [address] [phone] Magnesium 1.5 mg/dL Low 1.9-2.7 LDH 141 U/L Normal 140-271 Tacrolimus To Other Lab 8.7 ng/mL 5 CBC Auto 05/09/2019 [facility] White Blood 4.5 10^3/uL Normal 3.5-10.[address] [place] [address] [phone] Red Blood Count 3.99 10^6/uL Low 4.18-5.48 [...] Cells % 0.1 Comp Metabolic 05/09/2019 [facility] Sodium 136 mmol/L Normal 135-145 Panel [address] [place] [address] [phone] Potassium 4.6 mmol/L Normal 3.5-5.0 Chloride 101 [...] Egfr Non- 49.4 >60 Egfr 59.8 >60 6 Laboratory test 05/02/2019 [facility] Phosphorus 3.6 mg/dL Normal 2.5-5.0 finding [address] [place] [address] [phone] Magnesium 1.6 mg/dL Low 1.9-2.7 LDH 128 U/L Low 140-271 Tacrolimus To Other Lab 8.5 ng/mL 7 CBC Auto 05/02/2019 [facility] White Blood 5.0 10^3/uL Normal 3.5-10.[address] [place] [address] [phone] Red Blood Count 4.14 10^6/uL Low 4.18-5.48 [...] Cells % 0.1 Comp Metabolic 05/02/2019 [facility] Sodium 137 mmol/L Normal 135-[address] [place] [address] [phone] Potassium 4.7 mmol/L Normal 3.5-5.0 Chloride 102 [...] Egfr Non- 51.1 >60 Egfr 61.8 >60 8 Laboratory test 04/25/2019 [facility] Phosphorus 3.2 mg/dL Normal 2.5-5.[address] [place] [address] [phone] Magnesium 1.4 mg/dL Low 1.9-2.7 LDH 132 U/L Low 140-271 Tacrolimus To Other Lab 9.5 ng/mL 9 CBC Auto 04/25/2019 [facility] White Blood 4.9 10^3/uL Normal 3.5-10.[address] [place] [address] [phone] Red Blood Count 4.05 10^6/uL Low 4.18-5.48 [...] Cells % 0.0 Comp Metabolic 04/25/2019 [facility] Sodium 138 mmol/L Normal 135-[address] [place] [address] [phone] Potassium 4.7 mmol/L Normal 3.5-5.0 Chloride 103 [...] Egfr Non- 54.3 >60 Egfr 65.7 >60 10 Laboratory test 04/18/2019 [facility] Tacrolimus To 10.1 ng/mL [address] [place] [address] [phone] Comp Metabolic 04/18/2019 [facility] Sodium 138 mmol/L Normal 135-[address] [place] [address] [phone] Potassium 5.0 mmol/L Normal 3.5-5.0 Chloride 103 [...] Egfr Non- 53.3 >60 Egfr 64.5 >60 12 CBC Auto 04/18/2019 [facility] White Blood 5.2 10^3/uL Normal 3.5-10.[address] [place] [address] [phone] Red Blood Count 4.09 10^6/uL Low 4.18-5.48 [...] Cells % 0.0 Laboratory test 04/18/2019 [facility] Phosphorus 3.9 mg/dL Normal 2.5-5.[address] [place] [address] [phone] Magnesium 1.6 mg/dL Low 1.9-2.7 LDH 152 U/L Normal 140-271 Comp Metabolic 04/11/2019 [facility] Sodium 136 mmol/L Normal 135-[address] [place] [address] [phone] Potassium 4.8 mmol/L Normal 3.5-5.0 Chloride 100 [...] Egfr Non- 51.5 >60 Egfr 62.3 >60 13 CBC Auto 04/11/2019 [facility] White Blood 6.1 10^3/uL Normal 3.5-10.[address] [place] [address] [phone] Red Blood Count 4.14 10^6/uL Low 4.18-5.48 [...] % Nucleated Red Blood Cells % 0.2 Laboratory test 04/11/2019 [facility] Phosphorus 3.5 mg/dL Normal 2.5-5.[address] [place] [address] [phone] Magnesium 1.6 mg/dL Low 1.9-2.7 LDH 156 U/L Normal 140-271 Tacrolimus To Other Lab 8.2 ng/mL 14 CBC Auto 04/04/2019 [facility] White Blood 5.5 10^3/uL Normal 3.5-10.[address] [place] [address] [phone] Red Blood Count 4.18 10^6/uL Normal 4.18-5.48 [...] Red Blood Cells % 0.0 Comp Metabolic 04/04/2019 [facility] Sodium 136 mmol/L Normal 135-[address] [place] [address] [phone] Potassium 4.7 mmol/L Normal 3.5-5.0 Chloride 101 [...] Egfr Non- 51.5 >60 Egfr 62.3 >60 15 Laboratory test 04/04/2019 [facility] Phosphorus 3.8 mg/dL Normal 2.5-5.0 finding [address] [place] [address] [phone] Magnesium 1.5 mg/dL Low 1.9-2.7 LDH 140 U/L Normal 140-271 Tacrolimus To Other Lab 10.5 ng/mL 16 Comp Metabolic 03/28/2019 [facility] Sodium 138 mmol/L Normal 135-145 Panel [address] [place] [address] [phone] Potassium 4.6 mmol/L Normal 3.5-5.0 Chloride 102 [...] Egfr Non- 53.3 >60 Egfr 64.5 >60 17 Laboratory test 03/28/2019 [facility] Phosphorus 3.7 mg/dL Normal 2.5-5.0 finding [address] [place] [address] [phone] Magnesium 1.6 mg/dL Low 1.9-2.7 LDH 147 U/L Normal 140-271 Tacrolimus To Other Lab 10.5 ng/mL 18 CBC Auto 03/28/2019 [facility] White Blood 5.9 10^3/uL Normal 3.5-10.[address] [place] [address] [phone] Red Blood Count 4.12 10^6/uL Low 4.18-5.48 [...] Cells % 0.2 CBC Auto 03/21/2019 [facility] White Blood 5.7 10^3/uL Normal 3.5-10.[address] [place] [address] [phone] Red Blood Count 4.04 10^6/uL Low 4.18-5.48 [...] Cells % 0.0 Comp Metabolic 03/21/2019 [facility] Sodium 140 mmol/L Normal 135-[address] [place] [address] [phone] Potassium 4.7 mmol/L Normal 3.5-5.0 Chloride 105 [...] Egfr Non- 57.4 >60 Egfr 69.4 >60 19 Laboratory test 03/21/2019 [facility] Magnesium 1.5 mg/dL Low 1.9-2.[address] [place] [address] [phone] LDH 171 U/L Normal 140-271 Tacrolimus To Other Lab 9.9 ng/mL 20 CBC Auto 03/14/2019 [facility] White Blood 6.5 10^3/uL Normal 3.5-10.[address] [place] [address] [phone] Red Blood Count 3.96 10^6/uL Low 4.18-5.48 [...] Cells % 0.0 Comp Metabolic 03/14/2019 [facility] Sodium 137 mmol/L Normal 135-145 Panel [address] [place] [phone] Potassium 4.5 mmol/L Normal 3.5-5.0 Chloride 101 [...] Egfr Non- 54.3 >60 Egfr 65.7 >60 21 Laboratory test 03/14/2019 [facility] Magnesium 1.5 mg/dL Low 1.9-2.[address] [place] [address] [phone] LDH 164 U/L Normal 140-271 Tacrolimus To Other Lab 12.9 ng/mL 22 CBC Auto 01/17/2019 [facility] White Blood 13.1 10^3/uL High 3.5-10.[address] [place] [address] [phone] Red Blood Count 2.97 10^6/uL Low 4.18-5.48 [...] fL Normal 7.4-10.4 Manual Differential 01/17/2019 [facility] Neutrophil % 72.0 % [address] [place] [address] [phone] Lymphocytes % 22.0 % Monocytes % 3.0 % Eosinophils % 3.0 % Nucleated Red Blood Cells/100 9.0 High 0-0 Abs Neutrophils 9.4 10^3/uL High 1.5-7.7 Abs Lymphocytes 2.9 10^3/uL Normal 1.0-4.8 Abs Monocytes 0.4 10^3/uL Normal 0-0.8 Abs Eosinophils 0.4 10^3/uL Normal 0-0.6 RBC Morphology Normal Normal Macrocytosis 1+ Microcytosis 1+ Hypochromasia 1+ Polychromasia 2+ Laboratory test 01/14/2019 [facility] Point of Care 124 mg/dL High 70-100 [address] [place] [address] [phone] Platelet Count 01/14/2019 [facility] Platelet 56 10^3/uL Low 150-[address] [place] [address] [phone] Mean Platelet Volume 7.9 fL Normal 7.4-10.4 CBC No Diff 01/14/2019 [facility] White Blood 17.5 10^3/uL High 3.5-10.[address] [place] [address] [phone] Red Blood Count 2.37 10^6/uL Low 4.18-5.48 Hemoglobin 7.0 g/dL Low 14.0-18.0 Hematocrit 21 % Low 42-52 Mean Corpuscular Volume 87 fL Normal 80-94 Mean Corpuscular Hemoglobin 30 pg Normal 27-31 Mean Corpuscular HGB Conc 34 g/dL Normal 31-36 Red Cell Distribution Width 15 % Normal 10-15 Platelet Count 56 10^3/uL Low 150-450 25 Mean Platelet Volume 7.9 fL Normal 7.4-10.4 Type & Screen 01/14/2019 [facility] Patient Blood Type O Positive [address] [place], [place] [phone] Antibody Screen NEGATIVE Laboratory test 01/14/2019 [facility] Packed SEE RESULTS [address] Cells BELO <[place] [address] NOTE> [phone] CBC Auto Diff 01/11/2019 [facility] White Blood 9.6 10^3/uL Normal 3.5-[address] Count 0.8 [place], [place] [address] [phone] Red Blood Count 2.70 10^6/uL Low 4.18-5.48 Hemoglobin 7.9 g/dL Low 14.0-18.0 Hematocrit 24 % Low 42-52 Mean Corpuscular Volume 88 fL Normal 80-94 Mean Corpuscular Hemoglobin 29 pg Normal 27-31 Mean Corpuscular HGB Conc 33 g/dL Normal 31-36 Red Cell Distribution Width 15 % Normal 10-15 Platelet Count 21 10^3/uL Low 150-450 27 Mean Platelet Volume 7.2 fL Low 7.4-10.4 Abs Neutrophils 5.6 10^3/uL Normal 1.5-7.7 Manual 01/11/2019 [facility] Immature 7.0 % Normal 0-[address] [place] [address] [phone] Neutrophil % 69.0 % Band % 2.0 [...] 10^3/uL Normal 0-0.6 Laboratory test 01/11/2019 [facility] Platelet SEE RESULTS [address] Pheres[address] LR BELO <[place] [address] Irrad NOTE> [phone] CBC Auto Diff 01/07/2019 [facility] White Blood 9.8 10^3/uL Normal 3.5-[address] Count 0.8 [place] [address] [phone] Red Blood Count 2.70 10^6/uL Low 4.18-5.48 Hemoglobin 7.8 g/dL Low 14.0-18.0 Hematocrit 24 % Low 42-52 Mean Corpuscular Volume 87 fL Normal 80-94 Mean Corpuscular Hemoglobin 29 pg Normal 27-31 Mean Corpuscular HGB Conc 33 g/dL Normal 31-36 Red Cell Distribution Width 15 % Normal 10-15 Platelet Count 34 10^3/uL Low 150-450 Mean Platelet Volume 7.5 fL Normal 7.4-10.4 Manual 01/07/2019 [facility] Immature 9.0 % Normal 0-[address] [place] [address] [phone] Neutrophil % 65.0 % Band % 1.0 [...] Normal 0-0.6 Type & Screen 01/07/2019 [facility] Patient Blood Type O Positive [address] [place] [address] [phone] Antibody Screen NEGATIVE Laboratory test 01/07/2019 [facility] Packed Cells SEE RESULTS [address] BELO <[place] [address] NOTE> [phone] Blood Bag 01/03/2019 [facility] TxRx Workup: SEE RESULT 30 , 31 Culture TRX [address] [place] [address] Culture [phone] Platelet Count 01/03/2019 [facility] Platelet 56 10^3/uL Low 150-[address] Count 50 [place] [address] [phone] Mean Platelet Volume 7.1 fL Low 7.4-10.4 Transfusion 01/03/2019 [facility] TXRX Unit [id number] Reaction Profile [address] [place] [address] [phone] TXRX Prelim Report (SEE NOTE) 33 Transfusion RXN Interpretation (SEE NOTE) 34 Laboratory test 01/02/2019 [facility] Pheresis SEE RESULTS [address] Platelets BELO <[place] [address] NOTE> [phone] CBC Auto Diff 12/31/2018 [facility] White Blood 7.8 10^3/uL Normal 3.5- [address] Count 10.8 [place] [address] [phone] Red Blood Count 2.81 10^6/uL Low 4.18-5.48 [...] fL Low 7.4-10.4 Cell Morphology 12/31/2018 [facility] Polychromasia 2+ [address] [place] [address] [phone] Anisocytosis 2+ Manual 12/31/2018 [facility] Immature 3.0 % Normal 0-[address] [place] [address] [phone] Neutrophil % 67.0 % Lymphocytes % 22.0 [...] 10^3/uL Normal 0-0.6 CBC Auto 12/28/2018 [facility] White Blood 9.5 10^3/uL Normal 3.5-10.[address] [place] [address] [phone] Red Blood Count 2.86 10^6/uL Low 4.18-5.48 Hemoglobin 8.5 g/dL Low 14.0-18.0 Hematocrit 25 % Low 42-52 Mean Corpuscular Volume 88 fL Normal 80-94 Mean Corpuscular Hemoglobin 30 pg Normal 27-31 Mean Corpuscular HGB Conc 34 g/dL Normal 31-36 Red Cell Distribution Width 15 % Normal 10-15 Platelet Count 34 10^3/uL Low 150-450 36 Mean Platelet Volume 8.1 fL Normal 7.4-10.4 Manual 12/28/2018 [facility] Immature 10.0 % High 0-[address] [place] [address] [phone] Neutrophil % 69.0 % Band % 4.0 [...] 10^3/uL Normal 0-0.6 Platelet Count 12/27/2018 [facility] Platelet Count 41 10^3/uL Low 150-[address] [place] [address] [phone] Mean Platelet Volume 7.5 fL Normal 7.4-10.4 Laboratory 12/26/2018 [facility] Pheresis SEE RESULTS 37, 38 test finding [address] Platelets BELO <[place] [address] NOTE> [phone] CBC Auto Diff 12/24/2018 [facility] White Blood 9.8 10^3/uL Normal 3.5- [address] Count 10.8 [place] [address] [phone] Red Blood Count 3.03 10^6/uL Low 4.18-5.48 Hemoglobin 8.9 g/dL Low 14.0-18.0 Hematocrit 27 % Low 42-52 Mean Corpuscular Volume 88 fL Normal 80-94 Mean Corpuscular Hemoglobin 29 pg Normal 27-31 Mean Corpuscular HGB Conc 34 g/dL Normal 31-36 Red Cell Distribution Width 14 % Normal 10-15 Platelet Count 20 10^3/uL Low 150-450 Mean Platelet Volume 7.6 fL Normal 7.4-10.4 Manual 12/24/2018 [facility] Immature 6.0 % Normal 0-[address] [place] [address] [phone] Neutrophil % 73.0 % Lymphocytes % 14.0 % Monocytes % 4.0 % Eosinophils % 3.0 % Metamyelocytes % 1.0 % Normal 0-2 Myelocytes % 5.0 % High 0-1 Polychromasia 2+ Anisocytosis 2+ Abs Neutrophils 7.7 10^3/uL Normal 1.5-7.7 Abs Lymphocytes 1.4 10^3/uL Normal 1.0-4.8 Abs Monocytes 0.4 10^3/uL Normal 0-0.8 Abs Eosinophils 0.3 10^3/uL Normal 0-0.6 CBC Auto 12/19/2018 [facility] White Blood 7.5 10^3/uL Normal 3.5-10.[address] [place] [address] [phone] Red Blood Count 2.73 10^6/uL Low 4.18-5.48 Hemoglobin 8.1 g/dL Low 14.0-18.0 Hematocrit 24 % Low 42-52 Mean Corpuscular Volume 87 fL Normal 80-94 Mean Corpuscular Hemoglobin 30 pg Normal 27-31 Mean Corpuscular HGB Conc 34 g/dL Normal 31-36 Red Cell Distribution Width 14 % Normal 10-15 Platelet Count 17 10^3/uL Low 150-450 40 Mean Platelet Volume 8.5 fL Normal 7.4-10.4 [...] % 1.0 Type & Screen 12/19/2018 [facility] Patient Blood Type O Positive [address] [place] [address] [phone] Antibody Screen NEGATIVE Laboratory test 12/19/2018 [facility] Packed SEE RESULTS [address] Cells BELO <[place] [address] NOTE> [phone] CBC Auto Diff 12/17/2018 [facility] White Blood 7.6 10^3/uL Normal 3.5-[address] Count 0.8 [place] [address] [phone] Red Blood Count 2.43 10^6/uL Low 4.18-5.48 [...] % 0.6 Type & Screen 12/17/2018 [facility] Patient Blood Type O Positive [address] [place] [address] [phone] Antibody Screen NEGATIVE Laboratory test 12/17/2018 [facility] Packed SEE RESULTS [address] Cells BELO <[place] [address] NOTE> [phone] CBC Auto Diff 12/13/2018 [facility] White Blood 6.8 10^3/uL Normal 3.5-[address] Count 0.8 [place], [place] [address] [phone] Red Blood Count 2.74 10^6/uL Low 4.18-5.48 Hemoglobin 8.2 g/dL Low 14.0-18.0 Hematocrit 24 % Low 42-52 Mean Corpuscular Volume 87 fL Normal 80-94 Mean Corpuscular Hemoglobin 30 pg Normal 27-31 Mean Corpuscular HGB Conc 35 g/dL Normal 31-36 Red Cell Distribution Width 14 % Normal 10-15 Platelet Count 18 10^3/uL Low 150-450 43 Mean Platelet Volume 8.4 fL Normal 7.4-10.4 [...] Cells % 0.4 CBC Auto 12/10/2018 [facility] White Blood 5.7 10^3/uL Normal 3.5-10.[address] [place] [address] [phone] Red Blood Count 3.00 10^6/uL Low 4.18-5.48 [...] Cells % 0.6 CBC Auto 12/07/2018 [facility] White Blood 6.1 10^3/uL Normal 3.5-10.[address] [place] [address] [phone] Red Blood Count 3.10 10^6/uL Low 4.18-5.48 [...] fL Low 7.4-10.4 Manual Differential 12/07/2018 [facility] Neutrophil % 70.0 % [address] [place] [address] [phone] Lymphocytes % 24.0 % Monocytes % 5.0 % Basophil % 1.0 % Nucleated Red Blood Cells/100 4.0 High 0-0 Abs Neutrophils 4.3 10^3/uL Normal 1.5-7.7 Abs Lymphocytes 1.5 10^3/uL Normal 1.0-4.8 Abs Monocytes 0.3 10^3/uL Normal 0-0.8 Abs Basophils 0.1 10^3/uL Normal 0-0.2 Macrocytosis 1+ Microcytosis 1+ Hypochromasia 2+ Polychromasia 1+ Rouleaux 1+ 1 Because ethnic data is not always [...] developed and its performance characteristics determined by [facility] in a manner consistent with CLIA requirements. This test has not been cleared or approved by the U.S. Food and Drug Administration. Test Performed by: [facility] [place] [address] Certified Paralegal: Alexis Peter M.D. Ph.D.; CLIA# [id number] 3 REFERENCE VALUE 5.0-15.0 (Trough) ADDITIONAL INFORMATION Target steady-state trough concentrations vary depending on the type of transplant, concomitant immunosuppression, clinical/institutional protocols, and time post-transplant. Results should be interpreted in conjunction with this clinical information and any physical signs/symptoms of rejection/toxicity. Testing performed by Liquid Chromatography-Tandem Mass Spectrometry (LC-MS/MS). This test was developed and its performance characteristics determined by [facility] in a manner consistent with CLIA requirements. This test has not been cleared or approved by the U.S. Food and Drug Administration. Test Performed by: [facility] [place] [address] Certified Paralegal: Alexis Peter M.D. Ph.D.; CLIA# [id number] 4 Because ethnic data is not always readily [...] 15-29 5 Kidney failure <15 (or dialysis) 5 REFERENCE VALUE 5.0-15.0 (Trough) ADDITIONAL INFORMATION Target steady-state trough concentrations vary depending on the type of transplant, concomitant immunosuppression, clinical/institutional protocols, and time post-transplant. Results should be interpreted in conjunction with this clinical information and any physical signs/symptoms of rejection/toxicity. Testing performed by Liquid Chromatography-Tandem Mass Spectrometry (LC-MS/MS). This test was developed and its performance characteristics determined by [facility] in a manner consistent with CLIA requirements. This test has not been cleared or approved by the U.S. Food and Drug Administration. Test Performed by: [facility] [address] [place] [address] Certified Paralegal: Alexis Petre M.D. Ph.D.; CLIA# [id number] 6 Because ethnic data is not always readily [...] 15-29 5 Kidney failure <15 (or dialysis) 7 REFERENCE VALUE 5.0-15.0 (Trough) ADDITIONAL INFORMATION Target steady-state trough concentrations vary depending on the type of transplant, concomitant immunosuppression, clinical/institutional protocols, and time post-transplant. Results should be interpreted in conjunction with this clinical information and any physical signs/symptoms of rejection/toxicity. Testing performed by Liquid Chromatography-Tandem Mass Spectrometry (LC-MS/MS). This test was developed and its performance characteristics determined by [facility] in a manner consistent with CLIA requirements. This test has not been cleared or approved by the U.S. Food and Drug Administration. Test Performed by: [id number] [place] [address] Certified Paralegal: Alexis Peter M.D. Ph.D.; CLIA# [id number] 8 Because ethnic data is not always readily [...] 15-29 5 Kidney failure <15 (or dialysis) 9 REFERENCE VALUE 5.0-15.0 (Trough) ADDITIONAL INFORMATION Target steady-state trough concentrations vary depending on the type of transplant, concomitant immunosuppression, clinical/institutional protocols, and time post-transplant. Results should be interpreted in conjunction with this clinical information and any physical signs/symptoms of rejection/toxicity. Testing performed by Liquid Chromatography-Tandem Mass Spectrometry (LC-MS/MS). This test was developed and its performance characteristics determined by [facility] in a manner consistent with CLIA requirements. This test has not been cleared or approved by the U.S. Food and Drug Administration. Test Performed by: [facility] [address] [place] [address] Certified Paralegal: Alexis Peter M.D. Ph.D.; CLIA# [id number] 10 Because ethnic data is not always [...] developed and its performance characteristics determined by [facility] in a manner consistent with CLIA requirements. This test has not been cleared or approved by the U.S. Food and Drug Administration. Test Performed by: [facility] [address] [place] [address] Certified Paralegal: Alexis Peter M.D. Ph.D.; CLIA# [id number] 12 Because ethnic data is not always [...] 5 Kidney failure <15 (or dialysis) 13 Because ethnic data is not always readily [...] 15-29 5 Kidney failure <15 (or dialysis) 14 REFERENCE VALUE 5.0-15.0 (Trough) ADDITIONAL INFORMATION Target steady-state trough concentrations vary depending on the type of transplant, concomitant immunosuppression, clinical/institutional protocols, and time post-transplant. Results should be interpreted in conjunction with this clinical information and any physical signs/symptoms of rejection/toxicity. Testing performed by Liquid Chromatography-Tandem Mass Spectrometry (LC-MS/MS). This test was developed and its performance characteristics determined by [facility] in a manner consistent with CLIA requirements. This test has not been cleared or approved by the U.S. Food and Drug Administration. Test Performed by: [facility] [id number] [place] [address] Certified Paralegal: Alexis Peter M.D. Ph.D.; CLIA# [id number] 15 Because ethnic data is not always readily [...] 15-29 5 Kidney failure <15 (or dialysis) 16 REFERENCE VALUE 5.0-15.0 (Trough) ADDITIONAL INFORMATION Target steady-state trough concentrations vary depending on the type of transplant, concomitant immunosuppression, clinical/institutional protocols, and time post-transplant. Results should be interpreted in conjunction with this clinical information and any physical signs/symptoms of rejection/toxicity. Testing performed by Liquid Chromatography-Tandem Mass Spectrometry (LC-MS/MS). This test was developed and its performance characteristics determined by [facility] in a manner consistent with CLIA requirements. This test has not been cleared or approved by the U.S. Food and Drug Administration. Test Performed by: [facility] [address] [place] [address] Certified Paralegal: Alexis Peter M.D. Ph.D.; CLIA# [id number] 17 Because ethnic data is not always readily [...] 15-29 5 Kidney failure <15 (or dialysis) 18 REFERENCE VALUE 5.0-15.0 (Trough) ADDITIONAL INFORMATION Target steady-state trough concentrations vary depending on the type of transplant, concomitant immunosuppression, clinical/institutional protocols, and time post-transplant. Results should be interpreted in conjunction with this clinical information and any physical signs/symptoms of rejection/toxicity. Testing performed by Liquid Chromatography-Tandem Mass Spectrometry (LC-MS/MS). This test was developed and its performance characteristics determined by [facility] in a manner consistent with CLIA requirements. This test has not been cleared or approved by the U.S. Food and Drug Administration. Test Performed by: [facility] [place] [address] Certified Paralegal: Alexis Peter M.D. Ph.D.; CLIA# [id number] 19 Because ethnic data is not always readily [...] 15-29 5 Kidney failure <15 (or dialysis) 20 REFERENCE VALUE 5.0-15.0 (Trough) ADDITIONAL INFORMATION Target steady-state trough concentrations vary depending on the type of transplant, concomitant immunosuppression, clinical/institutional protocols, and time post-transplant. Results should be interpreted in conjunction with this clinical information and any physical signs/symptoms of rejection/toxicity. Testing performed by Liquid Chromatography-Tandem Mass Spectrometry (LC-MS/MS). This test was developed and its performance characteristics determined by [facility] in a manner consistent with CLIA requirements. This test has not been cleared or approved by the U.S. Food and Drug Administration. Test Performed by: [facility] [place] [address] Certified Paralegal: Alexis Peter M.D. Ph.D.; CLIA# [id number] 21 Because ethnic data is not always readily [...] 15-29 5 Kidney failure <15 (or dialysis) 22 REFERENCE VALUE 5.0-15.0 (Trough) ADDITIONAL INFORMATION Target steady-state trough concentrations vary depending on the type of transplant, concomitant immunosuppression, clinical/institutional protocols, and time post-transplant. Results should be interpreted in conjunction with this clinical information and any physical signs/symptoms of rejection/toxicity. Testing performed by Liquid Chromatography-Tandem Mass Spectrometry (LC-MS/MS). This test was developed and its performance characteristics determined by [facility] in a manner consistent with CLIA requirements. This test has not been cleared or approved by the U.S. Food and Drug Administration. Test Performed by: [facility] [address] [place] [address] Certified Paralegal: Alexis Peter M.D. Ph.D.; CLIA# [id number] 23 Cleaner Assistant: [id number] Consistent with Previous Results Reported on 01/11/19 25 Consistent with Previous Results Reported on 01/11/19 26 SEE RESULTS BELOW [id number] OP TRANSFUSED 01/15/19 1310 27 Consistent with Previous Results Reported on 01/07/2019 28 SEE RESULTS BELOW [id number] OP PHPLTLRIRR TRANSFUSED 01/14/19 09 [id number] OP PHPLTLRIRR TRANSFUSED 01/14/19 1003 29 SEE RESULTS BELOW [id number] OP PC TRANSFUSED 01/07/19 1206 30 D64.21 31 SEE RESULT BELOW Name: APPLELENNOX : [address]: Cheryl Taylor MD Acct: [id number] Unit: [id number] AGE: 73 Location: INF Re01/03/19 SEX: M Status: REG REF SPEC: [id number] RAEGAN: 01/03/19-1 [facility] DR: Cheryl Taylor MD REQ: [id number] RECD: 01/03/19 STATUS: COURTNEY HOOD DR: Domenica Eid MD _ SOURCE: BLOOD BAG SPDESC: ORDERED: TxRx BB Cult Procedure Result Reported Site TxRx Workup: BB Bag Culture Final 01/08/19- 1021 ML No Growth Day 5 Blood Bag Gram Stain Final 01/03/19- 1040 ML Blood Bag Gram Stain No Organisms Seen * ML - Main Lab . END OF REPORT DEPARTMENT OF PATHOLOGY, [address] [place] [address] Mumtaz Lou M.D. Director [facility] # [id number] 32 Consistent with Previous Results Reported on 12/31/18 33 Extended workup not necessary. Results called to (JOSE) by [id number] at 0955 on 01/03/19. Pathologist notified by [id number] at 0950 on 01/03/19. OK to continue transfusions. 34 Allergic Reviewed by Mariaelena Terrazas MD 35 SEE RESULTS BELOW [id number] OP PHPLT TRANSFUSED 01/03/19 0846 [id number] OP PHPLT TRANSFUSED 01/03/19 0935 36 Consistent with Previous Results Reported on 12/27/18 37 D46.21 38 SEE RESULTS BELOW [id number] ABP PHPLT TRANSFUSED 12/27/18 0814 [id number] AP PHPLT TRANSFUSED 12/27/18 0906 39 WAITING FOR RESULTS 40 Consistent with Previous Results Reported on 12/17/18 41 SEE RESULTS BELOW [id number] OP PC TRANSFUSED 12/21/18 1352 42 SEE RESULTS BELOW [id number] OP PC TRANSFUSED 12/17/18 0952 43 Consistent with Previous Results Reported on 12/10/18 Procedures Date Code Description Status 05/22/2019 53909 EKG Tracing & Interpretation Completed 04/24/2019 45575 Removal Tunneled Central Venous Access Dev W/Sub Completed Port/Pump 01/14/2019 95749 Fluoroscopic Guidance For Cent Completed 01/14/2019 20186 Insertion Tunneled Cent Venous Cathr W Subcut Port 5 Completed Yrs Or Oldr 12/18/2018 83656 Diffusing Capacity Completed 12/18/2018 30800 Plethysmography Determination Lung Volumes & Per Completed Airway Resist 12/18/2018 42904 Pulmonary Function><Bronchodil Completed 12/18/2018 08859 ECHO Transthorasic Realtime 2D W Doppler & Color Flow Completed Hosp 05/28/2018 [id number] Diabetic Retinal Eye Exam Completed 01/03/2018 58758993 Colonoscopy Completed 10/31/2016 259359390 Diabetic Retinal Eye Exam Completed 12/11/2015 702961117 Diabetic Retinal Eye Exam Completed 04/15/2015 557241250 Diabetic Retinal Eye Exam Completed 01/01/2014 903708422 Diabetic Retinal Eye Exam Completed 12/19/2012 694713922 Diabetic Retinal Eye Exam Completed 11/09/2011 271138670 Diabetic Retinal Eye Exam Completed 04/18/2011 26498125 Colonoscopy Completed 04/26/2001 41427163 Colonoscopy Completed Medical Devices Description No Information Available Encounters Type Date Location Provider Dx Diagnosis Office Visit 05/22/2019 [facility] Jeovany Quinones, I48.20 Chronic atrial 1:40p Of [employer] Frequency Checker DO FACC fibrillation, unspecified E11.9 Type 2 diabetes mellitus without complications I10 Essential (primary) hypertension I49.3 Ventricular premature depolarization Office Visit 01/04/2019 [facility] M[facility] Dumont, D46.9 [facility]elodysplastic 10:[facility] , FACS syndrome, unspecified [employer] Frequency Checker Assessments Date Code Description Provider 05/22/2019 I48.20 Chronic atrial fibrillation, unspecified Jeovany Quinones, DO FACC 05/22/2019 E11.9 Type 2 diabetes mellitus without Jeovany Quinones, DO FACC complications 05/22/2019 I10 Essential (primary) hypertension Jeovany Quinones, DO FACC 05/22/2019 I49.3 Ventricular premature depolarization Jeovany Quinones, DO FACC 05/01/2019 D46.9 Myelodysplastic syndrome, unspecified Trenton Gorman [...] of Treatment 05/22/2019 - [facility] fibrillation, unspecifiedComments:Please check with Dr. Horner next week about whether you can restart coumadin or not. If you are able to restart, please contact Dr. Eid's office about restarting.Follow up:f/u 1 yearE11.9 Type 2 diabetes mellitus without iiymrhkfokwgfM53 Essential (primary) jqpyhzxnzknqE50.3 Ventricular premature depolarization Functional Status Description No Information Available Mental Status Description No Information Available Referrals Description No Information Available
[2019-07-16] MEDS ORDERED: traMADol TAB* 50 MG PO PRN (16:59)
[2019-07-16] MEDS ORDERED: Dextrose 50% Syringe 50 ML* 25 GM/50 ML SYRINGE IV PUSH PRN (17:03)
[2019-07-16] MEDS: Acyclovir* 200 MG CAP PO SCH (20:24)
[2019-07-16] MEDS: glipiZIDE TAB* 5 MG PO SCH (20:25)
[2019-07-16] MEDS: Gabapentin CAP(*) 300 MG PO SCH (20:26)
[2019-07-16] MEDS: Ursodiol CAP* 300 MG PO SCH (20:26)
[2019-07-16] MEDS: NS 0.9% 1000 ML** 1,000 ML IV SCH (20:31)
[2019-07-16] MEDS ORDERED: Tamsulosin CAP* 0.4 MG PO SCH (21:00)
[2019-07-17] MEDS ORDERED: Levothyroxine TAB* 112 MCG TAB PO SCH (06:00)
[2019-07-17 06:21] LABS: Albumin 2.8 g/dL (3.2-5.2); Albumin/Globulin Ratio 1.2 (1-3); BUN/Creatinine Ratio 15.4 (8-20); Calcium 8.1 mg/dL (8.6-10.3); EGFR African American 84.2 (>60); EGFR Non-African American 69.6 (>60); Globulin 2.3 g/dL (2-4); Potassium 4.2 mmol/L (3.5-5.0); Total Bilirubin 1.3 mg/dL (0.2-1.0); Total Protein 5.1 g/dL (6.4-8.9)
[2019-07-17 06:43] LABS: Polychromasia 1+
[2019-07-17 06:45] LABS: ABS Eosinophils 0.1 10^3/ul (0-0.6); ABS Lymphocytes 0.6 10^3/ul (1.0-4.8); ABS Monocytes 0.9 10^3/ul (0-0.8); ABS Neutrophils 0.8 10^3/ul (1.5-7.7); Eosinophil % 3.7 %; Hematocrit 20 % (42-52); Hemoglobin 6.8 g/dL (14.0-18.0); Lymphocyte % 25.9 %; Mean Corpuscular HGB Conc 35 g/dL (31-36); Mean Corpuscular Hemoglobin 36 pg (27-31); Mean Corpuscular Volume 104 fL (80-94); Mean Platelet Volume 7.4 fL (7.4-10.4); Nucleated Red Blood Cells % 0.4; Platelet Count 12 10^3/uL (150-450); Red Blood Count 1.89 10^6 /uL (4.18-5.48); Red Cell Distribution Width 20 % (10-15); White Blood Count 2.5 10^3/uL (3.5-10.8)
[2019-07-17] MEDS: NS 0.9% 1000 ML** 1,000 ML IV SCH (07:43)
[2019-07-17] MEDS: Insulin LISPRO* 1 UNITS UNIT SUBCUT SCH ×2 (07:47→11:48)
[2019-07-17] MEDS: Gabapentin CAP(*) 300 MG PO SCH ×2 (08:12→14:13)
[2019-07-17] MEDS: glipiZIDE TAB* 5 MG PO SCH (08:12)
[2019-07-17] MEDS: Ursodiol CAP* 300 MG PO SCH (08:12)
[2019-07-17] MEDS: Acyclovir* 200 MG CAP PO SCH (08:13)
[2019-07-17] MEDS ORDERED: Magnesium Oxide TAB* 400 MG PO SCH (09:00)
[2019-07-17] MEDS ORDERED: Pantoprazole TAB * 40 MG TAB PO SCH (09:00)
[2019-07-17 09:55] LABS: Hematocrit 20 % (42-52); Hemoglobin 6.8 g/dL (14.0-18.0); Mean Corpuscular HGB Conc 35 g/dL (31-36); Mean Corpuscular Hemoglobin 36 pg (27-31); Mean Corpuscular Volume 104 fL (80-94); Mean Platelet Volume 7.3 fL (7.4-10.4); Platelet Count 11 10^3/uL (150-450); Red Blood Count 1.88 10^6 /uL (4.18-5.48); Red Cell Distribution Width 20 % (10-15); White Blood Count 2.6 10^3/uL (3.5-10.8)
--- NOTE | 2019-07-17 09:59 | DS ---
- Discharge Summary Discharge/Transfer Summary Admission Date: 07/16/19 Transfer Date: 07/17/19 Admission Diagnosis: 1. 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 Weakness: secondary to severe panctyopenia 3. Hypotension: likely related to anemia and poor PO intake, anti-hypertensive meds on hold 4. Transaminitis: question of GVHD, steroids on hold pending US of liver 5. 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 DM: insulin coverage while receiving acute care 7. A.Fib: antiarrhythmic held yesterdya d/t symptomatic anemia, mildly tachy today but asymptomatic Transfer Medications: Medication Instructions Recorded Confirmed Type Ascorbic Acid TAB* [Vitamin C 500 mg PO QPM 03/23/17 07/16/19 History TAB*] Gabapentin CAP(*) [Neurontin 300 300 mg PO TID 03/23/17 07/16/19 History CAP(*)] Levothyroxine TAB* [Synthorid 112 112 mcg PO QAM 03/23/17 07/16/19 History MCG TAB*] Multivitamins/Minerals TAB* [Thera 1 tab PO QAM 03/23/17 07/16/19 History M Plus TAB*] Tamsulosin CAP* [Flomax CAP*] 0.4 mg PO QAM 03/23/17 07/16/19 History Magnesium Oxide [Magnesium] 400 mg PO DAILY 01/07/19 07/16/19 History Ondansetron [Zuplenz] 8 mg PO TID PRN MDD 3 01/07/19 07/16/19 History Acyclovir 400 mg PO BID 07/16/19 07/16/19 History Pantoprazole TAB * [Protonix TAB*] 40 mg PO DAILY 07/16/19 07/16/19 History Prochlorperazine 10 mg TAB 10 mg PO Q8H PRN MDD 3 07/16/19 07/16/19 History [Compazine 10 mg TAB] Tacrolimus [Tacrolimus 0.5 MG-] 0.5 mg PO Q48HR 07/16/19 07/16/19 History Tramadol HCl 50 mg PO Q8HR PRN MDD 3 07/16/19 07/16/19 History Ursodiol CAP* [Actigall CAP 300 300 mg PO BID 01/28/20 01/28/20 History MG*] glipiZIDE TAB* [Glucotrol TAB*] 5 mg PO BID 07/16/19 07/16/19 History Insulin LISPRO* [HumaLOG 100 0 units SUBCUT AC unit 07/17/19 Rx units/ml 3 ml VIAL *] Continue subq Insulin while inpt. Cardizem 240 mg PO daily & Metoprolol 25 mg PO daily ON HOLD d/t hypotension, HR stable @ this time. Condition: Stable Disposition: Transfer to transplant center @ [facility], attending: Dr. Horner Diet: heart healthy Activity: recommend PT eval. and may require rehab post discharge depending on course Hospital Course: Please see admission H&P for full medical history, however briefly, Mr. Smith is well known to our service due to his unfortunate diagnosis of MDS s/p induction therapy with Azacitadine and Allo-BMT 01/29/[address] John Horner @ [facility]. He had initially done very well, however over the last several weeks he has developed increased fatigue, weakness, and near syncope. He is day + 169. He was found to have transaminitis and panctopenia yesterday in the clinic. Follow discussion with his transplant team decision was made for admission to the hospital. He received 1 unit of PRBCs, however has not shown any improvement in his hmg. He denies new symptoms this AM. At this time his persistent pancytopenia is concerning for graft failure with question of GVHD d/ t his elevated liver enzymes. We will repeat an H&H after another 4 hours and obtain a stool occult blood to assess for any bleeding, however with transfusion refractory anemia he requires high level care. Decision has been made to transfer him to his transplant center in [place] ([facility]) for further work-up and treatment. Dr. Horner has accepted the patient and the transfer center has initiated the transfer. Mr. Smith is in agreement with this plan and very appreciative of his care. Full Code
[2019-07-17 10:24] LABS: ABS Eosinophils 0.1 10^3/ul (0-0.6); ABS Lymphocytes 0.6 10^3/ul (1.0-4.8); ABS Neutrophils 0.9 10^3/ul (1.5-7.7); Eosinophil % 2.6 %; Nucleated Red Blood Cells % 0.3
[2019-07-17] MEDS ORDERED: Diltiazem CD CAP* 240 MG PO ONE (12:58)
[2019-07-17 16:41] VITALS: BP 117/46
[2019-07-18] MEDS ORDERED: Tacrolimus CAP(*) 0.5 MG PO SCH (09:00)
== END 2019-07-17 16:00 | disposition short-term general hospital (02) | DRG 920 ==
LOC: MED 15:39
PROVIDERS: ADMIT Internal Medicine Hematology & Oncology; ATTEND Internal Medicine Hematology & Oncology
PROC: 30233N1 Transfusion of Nonautologous Red Blood Cells into Peripheral Vein, Percutaneous Approach (ICD-10-PCS; principal; 2019-07-16)
DX: T86.5 Complications of stem cell transplant (principal); D89.813 Graft-versus-host disease, unspecified; D46.9 Myelodysplastic syndrome, unspecified; I48.91 Unspecified atrial fibrillation; E11.9 Type 2 diabetes mellitus without complications; I10 Essential (primary) hypertension; I25.10 Atherosclerotic heart disease of native coronary artery without angina pectoris; I95.9 Hypotension, unspecified; Y65.8 Other specified misadventures during surgical and medical care; Y92.9 Unspecified place or not applicable; Z79.4 Long term (current) use of insulin
CPT/HCPCS: 36415; 80053; 85025; 85060; 86850; 86900; 86901; 86922; 93005; 99223; A9270-GY; J7507; P9040